=== PATIENT | female | born 1945 | race African-American/Black ===

== ENCOUNTER 2016-07-30 08:24 | Emergency (ER) | payer MEDICARE, MEDICAID ==
--- NOTE | 2016-07-30 09:22 | ER Document Report ---
ED Extremity Problem, Lower - General Chief Complaint: Leg Pain Stated Complaint: LEG AND GROIN PAIN Time seen by provider: 09:17 Mode of Arrival: Ambulatory Information source: Patient Notes: 70-year-old female presents to ED for left lower posterior leg pain. She has a history of colon cancer multiple other comorbidities. TRAVEL OUTSIDE OF THE [place] IN LAST 30 DAYS: No - HPI Patient complains to provider of: Pain Location: Leg - Bilateral right worse than left Occurred: Yesterday Where: Home Onset/Duration: Intermittent Quality of pain: Sharp, Throbbing Severity: Moderate Pain Level: 3 Recent injury: No Associated symptoms: Painful ambulation Exacerbated by: Nothing Relieved by: Nothing - Related Data Allergies/Adverse Reactions: diltiazem HCl [From Cardizem] Allergy (Severe, Verified 07/30/16 08:32) ITCHING, SWELLING, DIFFICULTY BREATHING acetaminophen [From Darvocet-N 100] Allergy (Intermediate, Verified 07/30/16 08: 32) Tachycardia propoxyphene napsylate [From Darvocet-N 100] Allergy (Intermediate, Verified 08:32) Tachycardia hydroxyzine HCl [From Vistaril] Allergy (Unknown, Verified 07/30/16 08:32) hydroxyzine pamoate [From Vistaril] Allergy (Unknown, Verified 07/30/16 08:32) levofloxacin [From Levaquin] Allergy (Unknown, Verified 07/30/16 08:32) oxycodone [Oxycodone] Allergy (Unknown, Verified 07/30/16 08:32) fluticasone propionate [From Advair Diskus] Adverse Reaction (Severe, Verified 07/30/16 08:32) AGRESSION salmeterol xinafoate [From Advair Diskus] Adverse Reaction (Severe, Verified 08:32) AGRESSION propoxyphene HCl [From Darvon] Adverse Reaction (Intermediate, Verified 08:32) Tachycardia celecoxib [From Celebrex] Adverse Reaction (Unknown, Verified 07/30/16 08:32) SHAKING meperidine HCl [From Demerol] Adverse Reaction (Unknown, Verified 07/30/16 08:32 ) oxycodone HCl [From Percocet] Adverse Reaction (Unknown, Verified 07/30/16 08:32 ) prednisone [Prednisone] Adverse Reaction (Unknown, Verified 07/30/16 08:32) CHILLS trazodone HCl [From Desyrel] Adverse Reaction (Unknown, Verified 07/30/16 08:32) amoxicillin [Amoxicillin] Adverse Reaction (Verified 07/30/16 08:32) STOMACH aspirin [Aspirin] Adverse Reaction (Verified 07/30/16 08:32) ULCER dexamethasone [From Decadron] Adverse Reaction (Verified 07/30/16 08:32) WEAKNESS dexamethasone sod phosphate [From Decadron] Adverse Reaction (Verified 07/30/16 08:32) WEAKNESS erythromycin base [From E-Mycin] Adverse Reaction (Verified 07/30/16 08:32) "STROKE LIKE SYMPTOMS pregabalin [From Lyrica] Adverse Reaction (Verified 07/30/16 08:32) "EFFECTS KIDNEYS" Past Medical History - General Information source: Patient - Social History Smoking Status: Never Smoker Cigarette use (# per day): No Chew tobacco use (# tins/day): No Smoking Education Provided: No Frequency of alcohol use: None Drug Abuse: None Occupation: none Lives with: Family - Grandson Family History: Arthritis, CAD, CVA, DM, Hyperlipidemia, Hypertension, Malignancy, Thyroid Disfunction Patient has suicidal ideation: No Patient has homicidal ideation: No - Past Medical History Cardiac Medical History: Reports: Hx Hypertension Pulmonary Medical History: Reports: Hx Asthma, Hx Bronchitis, Hx COPD EENT Medical History: Reports: None Neurological Medical History: Reports: None Endocrine Medical History: Reports: None Renal/ Medical History: Reports: None Malignancy Medical History: Reports: Hx Colorectal Cancer GI Medical History: Reports: Hx Diverticulitis, Hx Hiatal Hernia, Hx Ulcer, Hx Colonoscopy, Hx Endoscopy Musculoskeltal Medical History: Reports Hx Arthritis, 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, Reports Hx Musculoskeletal Trauma Skin Medical History: Reports None Psychiatric Medical History: Reports: None Traumatic Medical History: Reports: Hx Fractures - Spinal fractures clavicle fracture, Hx Spine Fracture - Multiple cervical fractures with surgery to repair , Hx Traumatic Brain Injury Infectious Medical History: Denies: Hx Hepatitis Past Surgical History: Reports: Hx Abdominal Surgery - Part of stomach removed due to ulcers, Hx Bowel Surgery, Hx Hysterectomy, Hx Neurologic Surgery - Multiple cervical spine fractures repaired, Hx Orthopedic Surgery - Lumbar spine surgery, Hx Tonsillectomy, Hx Umbilical Hernia, Other - Hemorrhoidectomy - Immunizations Hx Diphtheria, Pertussis, Tetanus Vaccination: No Review of Systems - Review of Systems Constitutional: No symptoms reported EENT: No symptoms reported Cardiovascular: No symptoms reported Respiratory: No symptoms reported Gastrointestinal: No symptoms reported Genitourinary: No symptoms reported Female Genitourinary: No symptoms reported Musculoskeletal: No symptoms reported, Other - Bilateral leg pain worse on the right Skin: No symptoms reported Hematologic/Lymphatic: No symptoms reported Neurological/Psychological: No symptoms reported -: Yes All other systems reviewed and negative Physical Exam - Vital signs Vitals: Temp Pulse Resp BP Pulse Ox 98.4 F 88 18 109/73 96 07/30/16 08:28 07/30/16 08:28 07/30/16 08:28 07/30/16 08:28 07/30/16 08:28 Interpretation: Normal - General General appearance: Appears well, Alert - HEENT Head: Normocephalic, Atraumatic Eyes: Normal Pupils: PERRL - Respiratory Respiratory status: No respiratory distress Chest status: Nontender Breath sounds: Normal Chest palpation: Normal - Cardiovascular Rhythm: Regular Heart sounds: Normal auscultation Murmur: No - Abdominal Inspection: Normal Distension: No distension Bowel sounds: Normal Tenderness: Nontender Organomegaly: No organomegaly - Back Back: Normal, Nontender - Extremities General upper extremity: Normal inspection, Nontender, Normal color, Normal ROM , Normal temperature General lower extremity: Normal inspection, Nontender, Normal color, Normal ROM , Normal temperature, Normal weight bearing. No: Tri's sign Calf: Tender - Neurological Neuro grossly intact: Yes Cognition: Normal Orientation: AAOx4 [place] Coma Scale Eye Opening: Spontaneous [place] Coma Scale Verbal: Oriented [place] Coma Scale Motor: Obeys Commands Sae[place] Coma Scale Total: 15 Speech: Normal Motor strength normal: LUE, RUE, LLE, RLE Sensory: Normal - Psychological Associated symptoms: Normal affect, Normal mood - Skin Skin Temperature: Warm Skin Moisture: Dry Skin Color: Normal Course - Re-evaluation Re-evalutation: 07/30/16 15:16 Negative penis Doppler discussed with patient and labs negative. Patient discharged home to follow-up with her primary doctor. - Vital Signs Vital signs: Temp Pulse Resp BP Pulse Ox 98.7 F 73 18 113/67 99 07/30/16 12:36 07/30/16 12:36 07/30/16 08:28 07/30/16 12:36 07/30/16 12:36 - Laboratory Result Diagrams: 07/30/16 09:52 Discharge - Discharge Clinical Impression: Leg pain, right Condition: Stable Disposition: HOME, SELF-CARE Additional Instructions: Leg Pain, Nonspecific We did not find an obvious cause for your leg pain. There's no sign of blood clot, infection, or other serious disease. Possible causes of vague leg pain include muscle or joint inflammation, disc disease in the lower back, pressure on the nerves in the back, or reduced blood flow through the arteries of the leg. Rest the leg. Pain can be eased with an antiinflammatory pain medicine such as ibuprofen. If the pain involves a small area, a heating pad might help. Call the doctor or return if the leg becomes swollen, weak, discolored, or increasingly painful, or if you develop any other significant change in your health. Acetaminophen Acetaminophen may be taken for pain relief or fever control. It's much safer than aspirin, offering a wider range of "safe" dosages. It is safe during . Some brand names are Tylenol, Panadol, Datril, Anacin 3, Tempra, and Liquiprin. Acetaminophen can be repeated every four hours. The following are maximum recommended dosages: WEIGHT Dose Drops Elixir Chewable( 80mg) (LBS.) drprs=droppers tsp=teaspoon 6 40 mg .4 ml (1/2) 6-11 80 mg .8 ml (full) 1/2 tsp 1 tab 12-16 120 mg 1 1/2 drprs 3/4 tsp 1 1/2 tabs 17-23 160 mg 2 drprs 1 tsp 2 tabs 24-30 240 mg 3 drprs 1 1/2 tsp 3 tabs 30-35 320 mg 2 tsp 4 tabs 36-41 360 mg 2 1/4 tsp 4 1 /2 tabs 42-47 400 mg 2 1/2 tsp 5 tabs 48-53 480 mg 3 tsp 6 tabs 54-59 520 mg 3 1/4 tsp 6 1 /2 tabs 60-64 560 mg 3 1/2 tsp 7 tabs 65-70 600 mg 3 3/4 tsp 7 1 /2 tabs 71-76 640 mg 4 tsp 8 tabs 77-82 720 mg 4 1/2 tsp 9 tabs 83-88 800 mg 5 tsp 10 tabs >89 pounds or adults 650 mg to 900 mg Acetaminophen can be repeated every four hours. Maximum daily dose not to exceed 4000 mg. These maximum recommended dosages are slightly higher than the dosages written on the product container, but these dosages are very safe and well below the toxic dosage for acetaminophen. FOLLOW-UP CARE: If you have been referred to a physician for follow-up care, call the physician s office for an appointment as you were instructed or within the next two days. If you experience worsening or a significant change in your symptoms, notify the physician immediately or return to the Emergency Department at any time for re-evaluation. Referrals: MATHIEU FERRARA MD [Primary Care Provider] - Follow up as needed
[2016-07-30 10:32] LABS: ALANINE AMINOTRANSFERASE 33 U/L (9-52); ALBUMIN 4.1 g/dL (3.5-5.0); ALKALINE PHOSPHATASE 89 U/L (38-126); ANION GAP 11 (5-19); ASPARTATE AMINO TRANSFERASE 31 U/L (14-36); BILIRUBIN,TOTAL 0.5 mg/dL (0.2-1.3); BLOOD UREA NITROGEN 14 mg/dL (7-20); CALCIUM 9.5 mg/dL (8.4-10.2); CARBON DIOXIDE 26 mmol/L (22-30); CHLORIDE 107 mmol/L (98-107); CREATININE RESULT 0.71 mg/dL (0.52-1.25); GLUCOSE 93 mg/dL (75-110); SODIUM 143.8 mmol/L (137-145); TOTAL PROTEIN 6.7 g/dL (6.3-8.2)
[2016-07-30 12:59] VITALS: BP 113/67
--- NOTE | 2016-07-31 08:35 | XCELERA REPORT ---
[address] [address] Lower Extremity Venous Evaluation Name: MERCEDES MIRELES Age: 70 yrs Gender: Female : 1945 Patient Status: Emergency Patient Location: ER Study Date: 07/30/2016 10:56 AM Procedure: Color flow and duplex imaging of the veins of the right lower extremity as well as the left Common Femoral vein. Reason For Study: pain right posterior lower leg hx colon ca Ordering Physician: ADDIE CARLSON Performed By: Nelson Tobias Right Sided Venous Evaluation Normal vessel filling wall to wall, compression and augmentation as well as Colour flow down to the infrageniculate veins. Left Sided Venous Evaluation The left common femoral vein is fully compressible. Spontaneous and phasic flow is present in the left common femoral vein. Critical Findings Called in to Dr Valenzuela at 1320. Interpretation Summary No duplex evidence of DVT or obstruction in the right lower extremity nor in the left Common Femoral vein. : ADDIE CARLSON > Dudley Bonilla
== END 2016-07-30 12:36 | disposition home or self-care (01) ==
LOC: ER 08:24
DX: M79.604 Pain in right leg (principal); Z85.038 Personal history of other malignant neoplasm of large intestine
CPT/HCPCS: 36415; 80053; 83735; 93971; 99284

== ENCOUNTER 2016-08-22 13:44 | Emergency (ER) | payer MEDICARE, MEDICAID ==
[2016-08-22] MEDS ORDERED: ASPIRIN 325 MG TABLET PO ONE (14:03)
--- NOTE | 2016-08-22 14:03 | ER Document Report ---
ED Medical Screen (RME) - General Chief Complaint: Allergic Reaction Stated Complaint: POSSIBLE ALLERGIC REACTION Time Seen by Provider: 08/22/16 13:58 Notes: 70-year-old female that presents today feeling as if she had an "allergic reaction". Patient states she had a right hip injection 4 days ago at the radiologist's office for some chronic hip and back pain. Patient states she had some "itching" after the injection. Patient states today she started to feel some "chest heaviness" with radiation to her left arm. She has never had pain to her chest previously. She denies any shortness of breath. She states some nausea without vomiting. She denies any calf pain or leg swelling. Patient also states that her "lips feel funny". She denies any tongue swelling or difficulty breathing or swallowing. Patient denies any other new medications or allergic contacts. TRAVEL OUTSIDE OF THE [place] IN LAST 30 DAYS: No - Related Data Allergies/Adverse Reactions: diltiazem HCl [From Cardizem] Allergy (Severe, Verified 08/22/16 13:52) ITCHING, SWELLING, DIFFICULTY BREATHING acetaminophen [From Darvocet-N 100] Allergy (Intermediate, Verified 08/22/16 13: 52) Tachycardia propoxyphene napsylate [From Darvocet-N 100] Allergy (Intermediate, Verified 13:52) Tachycardia hydroxyzine HCl [From Vistaril] Allergy (Unknown, Verified 08/22/16 13:52) hydroxyzine pamoate [From Vistaril] Allergy (Unknown, Verified 08/22/16 13:52) levofloxacin [From Levaquin] Allergy (Unknown, Verified 08/22/16 13:52) oxycodone [Oxycodone] Allergy (Unknown, Verified 08/22/16 13:52) fluticasone propionate [From Advair Diskus] Adverse Reaction (Severe, Verified 08/22/16 13:52) AGRESSION salmeterol xinafoate [From Advair Diskus] Adverse Reaction (Severe, Verified 13:52) AGRESSION propoxyphene HCl [From Darvon] Adverse Reaction (Intermediate, Verified 13:52) Tachycardia celecoxib [From Celebrex] Adverse Reaction (Unknown, Verified 08/22/16 13:52) SHAKING meperidine HCl [From Demerol] Adverse Reaction (Unknown, Verified 08/22/16 13:52 ) oxycodone HCl [From Percocet] Adverse Reaction (Unknown, Verified 08/22/16 13:52 ) prednisone [Prednisone] Adverse Reaction (Unknown, Verified 08/22/16 13:52) CHILLS trazodone HCl [From Desyrel] Adverse Reaction (Unknown, Verified 08/22/16 13:52) amoxicillin [Amoxicillin] Adverse Reaction (Verified 08/22/16 13:52) STOMACH aspirin [Aspirin] Adverse Reaction (Verified 08/22/16 13:52) ULCER dexamethasone [From Decadron] Adverse Reaction (Verified 08/22/16 13:52) WEAKNESS dexamethasone sod phosphate [From Decadron] Adverse Reaction (Verified 08/22/16 13:52) WEAKNESS erythromycin base [From E-Mycin] Adverse Reaction (Verified 08/22/16 13:52) "STROKE LIKE SYMPTOMS pregabalin [From Lyrica] Adverse Reaction (Verified 08/22/16 13:52) "EFFECTS KIDNEYS" Past Medical History - Past Medical History Cardiac Medical History: Reports: Hx Hypertension Denies: Hx Heart Attack Pulmonary Medical History: Reports: Hx Asthma, Hx Bronchitis, Hx COPD Neurological Medical History: Denies: Hx Seizures Renal/ Medical History: Denies: Hx Peritoneal Dialysis Malignancy Medical History: Reports: Hx Colorectal Cancer GI Medical History: Reports: Hx Diverticulitis, Hx Hiatal Hernia, Hx Ulcer, Hx Colonoscopy, Hx Endoscopy. 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 Denies: Hx Mastectomy, Hx Open Heart Surgery - Immunizations Hx Diphtheria, Pertussis, Tetanus Vaccination: No Physical Exam - Vital signs Vitals: Temp Pulse Resp BP Pulse Ox 98.5 F 83 16 142/84 H 96 08/22/16 13:48 08/22/16 13:48 08/22/16 13:48 08/22/16 13:48 08/22/16 13:48 Course - Vital Signs Vital signs: Temp Pulse Resp BP Pulse Ox 98.5 F 83 16 142/84 H 96 08/22/16 13:48 08/22/16 13:48 08/22/16 13:48 08/22/16 13:48 08/22/16 13:48
[2016-08-22 14:21] LABS: ABSOLUTE LYMPHOCYTES (AUTO) 1.7 10^3/uL (0.5-4.7); ABSOLUTE MONOCYTES (AUTO) 0.6 10^3/uL (0.1-1.4); ABSOLUTE NEUT (AUTO) 1.9 10^3/uL (1.7-8.2); BASOPHILS % (AUTO) 0.8 % (0-2); EOSINOPHILS % (AUTO) 0.1 % (0-6); HEMATOCRIT 40.1 % (36.0-47.0); HEMOGLOBIN 12.9 g/dL (12.0-15.5); HGB HCT DIFFERENCE -1.4; LYMPHOCYTES % (AUTO) 39.8 % (13-45); MEAN CORPUSCULAR HEMOGLOBIN 31.3 pg (27.0-33.4); MEAN CORPUSCULAR HGB CONC 32.2 g/dL (32.0-36.0); MEAN CORPUSCULAR VOLUME 97 fl (80-97); MONOCYTES % (AUTO) 13.2 % (3-13); RED BLOOD COUNT 4.12 10^6/uL (3.72-5.28); RED CELL DISTRIBUTION WIDTH 14.2 % (11.5-14.0); SEGMENTED NEUTROPHILS % (AUTO) 46.1 % (42-78); WHITE BLOOD COUNT 4.2 10^3/uL (4.0-10.5)
[2016-08-22 14:41] LABS: ANION GAP 7 (5-19); BLOOD UREA NITROGEN 15 mg/dL (7-20); CALCIUM 9.8 mg/dL (8.4-10.2); CARBON DIOXIDE 32 mmol/L (22-30); CHLORIDE 102 mmol/L (98-107); CREATININE RESULT 0.87 mg/dL (0.52-1.25); GLUCOSE 93 mg/dL (75-110); POTASSIUM 4.1 mmol/L (3.6-5.0); SODIUM 141.2 mmol/L (137-145)
[2016-08-22] MEDS ORDERED: FAMOTIDINE 20 MG TABLET PO ONE (16:26)
[2016-08-22] MEDS ORDERED: DIPHENHYDRAMINE HCL 25 MG CAPSULE PO ONE (16:26)
--- NOTE | 2016-08-22 16:29 | ER Document Report ---
ED General - General Mode of Arrival: Ambulatory Information source: Patient TRAVEL OUTSIDE OF THE [place] IN LAST 30 DAYS: No - HPI Patient complains to provider of: Weakness, soreness, pain to the left arm, and abnormal sensation to mouth Onset: This afternoon Associated symptoms: Other - see notes above <KVNG CASPER - Last Filed: 08/22/16 16:39> <FANG BAIRES - Last Filed: 08/22/16 22:28> - General Chief Complaint: Allergic Reaction Stated Complaint: POSSIBLE ALLERGIC REACTION Time Seen by Provider: 08/22/16 14:30 Notes: 70 year old female with history of back pain presents to the ED complaining of generalized weakness, soreness, and abnormal sensation to the mouth (roof and tongue) that started earlier this afternoon. Patient states that she received a depomedrol shot 4 days ago and believes these symptoms are related to a possible allergic reaction to the shot. Patient additionally complains of left arm pain, flu-like headache, and pruritus around the mouth. Patient states that she was numbed prior to the injection, but does not believe that these symptoms are from the numbing medication. Patient was receiving the shot for left hip/ groin pain. (KVNG CASPER) - Related Data Allergies/Adverse Reactions: diltiazem HCl [From Cardizem] Allergy (Severe, Verified 08/22/16 13:52) ITCHING, SWELLING, DIFFICULTY BREATHING acetaminophen [From Darvocet-N 100] Allergy (Intermediate, Verified 08/22/16 13: 52) Tachycardia propoxyphene napsylate [From Darvocet-N 100] Allergy (Intermediate, Verified 13:52) Tachycardia hydroxyzine HCl [From Vistaril] Allergy (Unknown, Verified 08/22/16 13:52) hydroxyzine pamoate [From Vistaril] Allergy (Unknown, Verified 08/22/16 13:52) levofloxacin [From Levaquin] Allergy (Unknown, Verified 08/22/16 13:52) oxycodone [Oxycodone] Allergy (Unknown, Verified 08/22/16 13:52) fluticasone propionate [From Advair Diskus] Adverse Reaction (Severe, Verified 08/22/16 13:52) AGRESSION salmeterol xinafoate [From Advair Diskus] Adverse Reaction (Severe, Verified 13:52) AGRESSION propoxyphene HCl [From Darvon] Adverse Reaction (Intermediate, Verified 13:52) Tachycardia celecoxib [From Celebrex] Adverse Reaction (Unknown, Verified 08/22/16 13:52) SHAKING meperidine HCl [From Demerol] Adverse Reaction (Unknown, Verified 08/22/16 13:52 ) oxycodone HCl [From Percocet] Adverse Reaction (Unknown, Verified 08/22/16 13:52 ) prednisone [Prednisone] Adverse Reaction (Unknown, Verified 08/22/16 13:52) CHILLS trazodone HCl [From Desyrel] Adverse Reaction (Unknown, Verified 08/22/16 13:52) amoxicillin [Amoxicillin] Adverse Reaction (Verified 08/22/16 13:52) STOMACH aspirin [Aspirin] Adverse Reaction (Verified 08/22/16 13:52) ULCER dexamethasone [From Decadron] Adverse Reaction (Verified 08/22/16 13:52) WEAKNESS dexamethasone sod phosphate [From Decadron] Adverse Reaction (Verified 08/22/16 13:52) WEAKNESS erythromycin base [From E-Mycin] Adverse Reaction (Verified 08/22/16 13:52) "STROKE LIKE SYMPTOMS pregabalin [From Lyrica] Adverse Reaction (Verified 08/22/16 13:52) "EFFECTS KIDNEYS" Past Medical History - General Information source: Patient - Social History Smoking Status: Unknown if Ever Smoked Family History: Arthritis, CAD, CVA, DM, Hyperlipidemia, Hypertension, Malignancy, Thyroid Disfunction - Past Medical History Cardiac Medical History: Reports: Hx Hypertension Pulmonary Medical History: Reports: Hx Asthma, Hx Bronchitis, Hx COPD Malignancy Medical History: Reports: Hx Colorectal Cancer GI Medical History: Reports: Hx Diverticulitis, Hx Hiatal Hernia, Hx Ulcer, Hx Colonoscopy, Hx Endoscopy Musculoskeltal Medical History: Reports Hx Arthritis, 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, Reports Hx Musculoskeletal Trauma Traumatic Medical History: Reports: Hx Fractures - Spinal fractures clavicle fracture, Hx Spine Fracture - Multiple cervical fractures with surgery to repair , Hx Traumatic Brain Injury Past Surgical History: Reports: Hx Abdominal Surgery - Part of stomach removed due to ulcers, Hx Bowel Surgery, Hx Hysterectomy, Hx Neurologic Surgery - Multiple cervical spine fractures repaired, Hx Orthopedic Surgery - Lumbar spine surgery, Hx Tonsillectomy, Hx Umbilical Hernia, Other - Hemorrhoidectomy - Immunizations Hx Diphtheria, Pertussis, Tetanus Vaccination: No <KVNG CASPER - Last Filed: 08/22/16 16:39> Review of Systems - Review of Systems Constitutional: See HPI, Weakness EENT: No symptoms reported Cardiovascular: No symptoms reported Respiratory: No symptoms reported Gastrointestinal: No symptoms reported Genitourinary: No symptoms reported Female Genitourinary: No symptoms reported Musculoskeletal: See HPI, Joint pain - Right hip/groin at injection site, Other - left arm pain Skin: No symptoms reported Hematologic/Lymphatic: No symptoms reported Neurological/Psychological: See HPI, Sensory change - Roof of mouth and tongue, Headaches - 'flu-like' headache -: Yes All other systems reviewed and negative <KVNG CASPER - Last Filed: 08/22/16 16:39> Physical Exam - Vital signs Interpretation: Normal - General General appearance: Appears well, Alert - HEENT Head: Normocephalic, Atraumatic Eyes: Normal Pupils: PERRL - Respiratory Respiratory status: No respiratory distress Chest status: Nontender Breath sounds: Normal Chest palpation: Normal - Cardiovascular Rhythm: Regular Heart sounds: Normal auscultation Murmur: No - Abdominal Inspection: Normal Distension: No distension Bowel sounds: Normal Tenderness: Nontender Organomegaly: No organomegaly - Back Back: Normal, Nontender - Extremities General upper extremity: Normal inspection, Nontender, Normal color, Normal ROM , Normal temperature General lower extremity: Normal inspection, Nontender, Normal color, Normal ROM , Normal temperature, Normal weight bearing. No: Tri's sign - Neurological Neuro grossly intact: Yes Cognition: Normal Orientation: AAOx4 [place] Coma Scale Eye Opening: Spontaneous [place] Coma Scale Verbal: Oriented [place] Coma Scale Motor: Obeys Commands [place] Coma Scale Total: 15 Speech: Normal Motor strength normal: LUE, RUE, LLE, RLE Sensory: Normal - Psychological Associated symptoms: Normal affect, Normal mood - Skin Skin Temperature: Warm Skin Moisture: Dry Skin Color: Normal <FANG BAIRES - Last Filed: 08/22/16 22:28> - Vital signs Vitals: Temp Pulse Resp BP Pulse Ox 98.5 F 83 16 142/84 H 96 08/22/16 13:48 08/22/16 13:48 08/22/16 13:48 08/22/16 13:48 08/22/16 13:48 Course - Laboratory Result Diagrams: 08/22/16 14:05 08/22/16 14:05 <KVNG CASPER - Last Filed: 08/22/16 16:39> - Laboratory Result Diagrams: 08/22/16 14:05 08/22/16 14:05 - Diagnostic Test Radiology reviewed: Reports reviewed <FANG BAIRES - Last Filed: 08/22/16 22:28> - Re-evaluation Re-evalutation: 08/22/16 22:28 Patient with no acute findings on exam. Area that was injected without any redness tenderness or swelling. No urticaria. Patient is complaining of some itching in her mouth. Patient has multiple allergies to multiple medications including steroids. Patient will be given Benadryl. Patient was feeling better after being given this and was discharged home. She is to return if she has any worsening or concerning symptoms. She is to avoid injections same medication the future. Stable for discharge. (FANG BAIRES) - Vital Signs Vital signs: Temp Pulse Resp BP Pulse Ox 98.5 F 83 16 142/84 H 96 08/22/16 13:48 08/22/16 13:48 08/22/16 13:48 08/22/16 13:48 08/22/16 13:48 - Laboratory Laboratory results interpreted by me: 08/22/16 08/22/16 14:05 14:05 RDW 14.2 H Monocytes % 13.2 H Carbon Dioxide 32 H Discharge <KVNG CASPER - Last Filed: 08/22/16 16:39> <FANG BAIRES - Last Filed: 08/22/16 22:28> - Discharge Clinical Impression: Allergic reaction Qualifiers: Encounter type: initial encounter Qualified Code(s): T78.40XA - Allergy, unspecified, initial encounter Condition: Stable Disposition: HOME, SELF-CARE Instructions: Acute Allergic Reaction to Drugs ([facility]) Referrals: MATHIEU FERRARA MD [Primary Care Provider] - Follow up as needed Scribe Documentation - Scribe Written by Scribe:: Daina Johnston, 08/22/2016 1910 acting as scribe for :: Jame <KVNG CASPER - Last Filed: 08/22/16 16:39>
--- NOTE | 2016-08-22 22:13 | EKG REPORT ---
SEVERITY:- NORMAL ECG - SINUS RHYTHM : Confirmed by: Judith Cunha MD 22-Aug-2016 22:12:41
[2016-08-23 01:26] VITALS: BP 134/70
== END 2016-08-22 18:08 | disposition home or self-care (01) ==
LOC: ER 13:44
DX: T78.40XA Allergy, unspecified, initial encounter (principal); R53.1 Weakness
CPT/HCPCS: 93005; 99284; 36415; 85025; 80048; 84484; 71020; 93010; A9270 ×3

== ENCOUNTER 2016-11-22 07:26 | Day surgery (SDC) | payer MEDICARE, MEDICAID ==
--- NOTE | 2016-11-16 12:49 | HISTORY AND PHYSICAL E ---
History and Physical NAME: MERCEDES MIRELES : 1945 AGE: 71Y ADMITTED: 11/22/2016 ROOM: CHIEF COMPLAINT: Patient for colon screening. HISTORY: Patient was seen back in 2013 for abdominal pain and underwent the following: Upper scope that showed no ulcers. She did have a partial gastrectomy, small gastric pouch, no ulcers. At this time, patient for colon screening. Patient did have colonoscopy done in 2007. She did have right hemicolectomy. She did have a normal-looking rectosigmoid, ascending, anastomosis is patent, small bowel intubated. Again, the patient did have history of colon cancer, right hemicolectomy. MEDICATIONS: 1. Singulair. 2. Synthroid. 3. Vitamin D. 4. Nebulizer. 5. Nexium. 6. Hydrocodone. ALLERGIES: She is allergic to: 1. AMOXICILLIN. 2. PREDNISONE. 3. DEMEROL. 4. ASPIRIN. REVIEW OF SYSTEMS: GASTROINTESTINAL: Partial gastrectomy, gastritis, small anastomotic ulcers, right hemicolectomy, cholecystectomy, hysterectomy. PHYSICAL EXAMINATION: VITAL SIGNS: Blood pressure 120/60, pulse 80, respirations 18, temp is 98. HEAD, EYES, EARS, NOSE, THROAT: Normal. NECK: Supple. LUNGS: Clear. ABDOMEN: Soft. NEUROLOGIC: Exam negative. CONCLUSION: History of colon cancer. PLAN: Screening colonoscopy, scheduled for 11/22. DICTATING PHYSICIAN: JUAN DIEGO MUNROE M.D. [id number] [id number] PHY#: [id number] ID: [id number] JOB#: [id number] ACCT: [id number] cc:MATHIEU FERRARA M.D., MAHMOUD M.D. >
[2016-11-22] MEDS ORDERED: ONDANSETRON HCL INJ/PF 4 MG/2 ML SDV ONE (09:18)
[2016-11-22] MEDS ORDERED: LIDOCAINE 2% JELLY 30 ML TUBE ONE (09:18)
[2016-11-22] MEDS ORDERED: NALOXONE HCL INJ/PF 0.4 MG/1 ML SDV ONE (09:19)
[2016-11-22] MEDS ORDERED: GLYCOPYRROLATE INJ 0.4 MG/2 ML VIAL ONE (09:19)
[2016-11-22] MEDS ORDERED: FLUMAZENIL INJ 0.5 MG/5 ML VIAL IV ONE (09:20)
[2016-11-22] MEDS ORDERED: EPINEPHRINE INJ 1 MG/10 ML DISP.SYRIN ONE (09:20)
[2016-11-22] MEDS ORDERED: GLUCAGON,HUMAN RECOMB 1 MG INJ ONE (09:20)
[2016-11-22] MEDS: MIDAZOLAM 2 MG/2 ML INJ ONE ×2 (09:35→09:40)
[2016-11-22] MEDS: FENTANYL CITRATE INJ/PF 100 MCG/2 ML AMPUL ONE ×2 (09:37→09:46)
[2016-11-22 11:43] VITALS: BP 123/82
[2016-11-22 12:11] LABS: ABSOLUTE LYMPHOCYTES (AUTO) 1.1 10^3/uL (0.5-4.7); ABSOLUTE MONOCYTES (AUTO) 0.3 10^3/uL (0.1-1.4); ABSOLUTE NEUT (AUTO) 2.5 10^3/uL (1.7-8.2); BASOPHILS % (AUTO) 0.6 % (0-2); EOSINOPHILS % (AUTO) 0.3 % (0-6); HEMATOCRIT 35.6 % (36.0-47.0); HEMOGLOBIN 11.8 g/dL (12.0-15.5); HGB HCT DIFFERENCE -0.2; LYMPHOCYTES % (AUTO) 27.5 % (13-45); MEAN CORPUSCULAR HEMOGLOBIN 32.2 pg (27.0-33.4); MEAN CORPUSCULAR HGB CONC 33.1 g/dL (32.0-36.0); MEAN CORPUSCULAR VOLUME 97 fl (80-97); MONOCYTES % (AUTO) 7.6 % (3-13); RED BLOOD COUNT 3.66 10^6/uL (3.72-5.28); RED CELL DISTRIBUTION WIDTH 14.2 % (11.5-14.0); WHITE BLOOD COUNT 3.9 10^3/uL (4.0-10.5)
[2016-11-22 12:28] LABS: IRON 160.5 ug/dL (37-170)
[2016-11-22 13:03] LABS: FERRITIN 11.2 ng/mL (11.1-264.0)
--- NOTE | 2016-11-22 13:44 | DISCHARGE SUMMARY E ---
Discharge Summary NAME: MERCEDES MIRELES : 1945 AGE: 71Y ADMITTED: 11/22/2016 DISCHARGED: 11/22/2016 11/22/2016 SUMMARY: The patient is a 71-year-old female who underwent colon exam today because of history of colorectal polyps. She did have right colon resection more than 10 years ago. Today colonoscopy shows no evidence of polyps. She did have a right hemicolectomy, no recurrence. The patient did have partial gastrectomy, small gastric pouch, no ulcers. Colonoscopy today shows no polyps, no recurrence. DISCHARGE PLAN: 1. Assurance. 2. Soft diet. 3. Continue present management. 4. Follow-up office visit in the next few days. 5. Consider follow-up colonoscopy after 10 years. DICTATING PHYSICIAN: JUAN DIEGO MUNROE M.D. 1209M [id number] PHY#: [id number] ID: [id number] JOB#: [id number] ACCT: [id number] cc:MATHIEU FERRARA M.D., MAHMOUD M.D. >
--- NOTE | 2016-11-22 13:53 | OPERATIVE REPORT E ---
Operative Report NAME: MERCEDES MIRELES : 1945 AGE: 71Y DATE OF SURGERY: 11/22/2016 ROOM: PREOPERATIVE DIAGNOSIS: HISTORY OF COLON CANCER; RIGHT COLON RESECTION. POSTOPERATIVE DIAGNOSIS: COLONOSCOPY NORMAL TO ANASTOMOSIS; NO RECURRENCE. OPERATION: Colonoscopy. SURGEON: JUAN DIEGO MUNROE M.D. ANESTHESIA: Versed 2. Fentanyl 50. TISSUE REMOVED OR ALTERED: None. PROCEDURE/FINDINGS: RECTAL EXAM: Normal. SIGMOID DESCENDING COLON: Normal. TRANSVERSE COLON: Normal. ASCENDING COLON: Resected. Anastomosis patent. No evidence of recurrence. Scope withdrawn from anastomosis into to transverse colon. Sigmoid descending colon, all the way to the rectum. CONCLUSION: HISTORY OF COLON CANCER, RESECTED MORE THAN 10 YEARS AGO; NO EVIDENCE OF RECURRENCE. PLAN: Consider followup colonoscopy 10 years. DICTATING PHYSICIAN: JUAN DIEGO MURNOE M.D. [id number] [id number] PHY#: [id number] ID: [id number] JOB#: [id number] ACCT: [id number] cc:MATHIEU FERRARA M.D., MAHMOUD M.D. >
== END 2016-11-22 11:50 | disposition home or self-care (01) ==
LOC: END 07:26
PROVIDERS: ATTEND Specialist
PROC: 0DJD8ZZ Inspection of Lower Intestinal Tract, Via Natural or Artificial Opening Endoscopic (ICD-10-PCS; principal; 2016-11-22 09:00)
DX: Z12.11 Encounter for screening for malignant neoplasm of colon (principal); Z85.038 Personal history of other malignant neoplasm of large intestine; Z90.49 Acquired absence of other specified parts of digestive tract; R97.0 Elevated carcinoembryonic antigen [CEA]; Z79.899 Other long term (current) drug therapy; Z88.6 Allergy status to analgesic agent; Z88.5 Allergy status to narcotic agent; Z88.0 Allergy status to penicillin
CPT/HCPCS: 36415; 82378; 82728; 83540; 85025; G0121; J2250; J3010; J1610; J2405; J0171; J2310; J3490

== ENCOUNTER 2017-01-10 07:55 | Day surgery (SDC) | payer MEDICARE, MEDICAID ==
--- NOTE | 2017-01-03 13:48 | HISTORY AND PHYSICAL E ---
History and Physical NAME: MERCEDES MIRELES : 1945 AGE: 71Y ADMITTED: 01/10/2017 ROOM: CHIEF COMPLAINT: History of . HISTORY: The patient is a 71-year-old female. She had a recent colonoscopy. She did have resection for colon, right hemicolectomy, secondary to polyps, no recurrence. She did have a partial gastrectomy, small gastric pouch. Today, she presented regarding upper endoscopy. MEDICATIONS: 1. Synthroid. 2. Singulair. 3. Nebulizer. 4. Nexium. 5. Hydrocodone. ALLERGIES: 1. PREDNISONE. 2. DEMEROL. 3. ASPIRIN. REVIEW OF SYSTEMS: GASTROINTESTINAL: Partial gastrectomy, right hemicolectomy, cholecystectomy, hysterectomy. PHYSICAL EXAMINATION: VITAL SIGNS: Blood pressure 120/60, pulse 80, respirations 18, temp is 98. HEAD, EYES, EARS, NOSE, THROAT: Normal. NECK: Supple. LUNGS: Clear. ABDOMEN: Soft. NEUROLOGIC: Exam negative. CONCLUSION: 1. Upper scope. 2. History of partial gastrectomy. 3. History of anemia. PLAN: Upper scope. Admit on 01/10. DICTATING PHYSICIAN: JUAN DIEGO MUNROE M.D. [id number] [id number] PHY#: [id number] ID: [id number] JOB#: [id number] ACCT: [id number] cc:JUAN DIEGO MUNROE M.D. >
[~2017-01-10 07:55] MED LIST: EPINEPHRINE INJ 1 MG/10 ML DISP.SYRIN ONE; FLUMAZENIL INJ 0.5 MG/5 ML VIAL ONE; GLUCAGON,HUMAN RECOMB 1 MG INJ ONE; GLYCOPYRROLATE INJ 0.4 MG/2 ML VIAL ONE; LIDOCAINE 2% JELLY 30 ML TUBE ONE; NALOXONE HCL INJ/PF 0.4 MG/1 ML SDV ONE; ONDANSETRON HCL INJ/PF 4 MG/2 ML SDV ONE
[2017-01-10] MEDS: MIDAZOLAM 2 MG/2 ML INJ ONE ×2 (09:10→09:14)
[2017-01-10] MEDS: FENTANYL CITRATE INJ/PF 100 MCG/2 ML AMPUL ONE ×2 (09:12→09:15)
[2017-01-10 10:44] LABS: ABSOLUTE LYMPHOCYTES (AUTO) 1.4 10^3/uL (0.5-4.7); ABSOLUTE MONOCYTES (AUTO) 0.3 10^3/uL (0.1-1.4); ABSOLUTE NEUT (AUTO) 1.5 10^3/uL (1.7-8.2); BASOPHILS % (AUTO) 0.8 % (0-2); EOSINOPHILS % (AUTO) 0.5 % (0-6); HEMATOCRIT 36.4 % (36.0-47.0); HEMOGLOBIN 12.1 g/dL (12.0-15.5); HGB HCT DIFFERENCE -0.1; LYMPHOCYTES % (AUTO) 42.3 % (13-45); MEAN CORPUSCULAR HEMOGLOBIN 31.9 pg (27.0-33.4); MEAN CORPUSCULAR HGB CONC 33.2 g/dL (32.0-36.0); MEAN CORPUSCULAR VOLUME 96 fl (80-97); MONOCYTES % (AUTO) 9.4 % (3-13); RED BLOOD COUNT 3.79 10^6/uL (3.72-5.28); RED CELL DISTRIBUTION WIDTH 14.7 % (11.5-14.0); WHITE BLOOD COUNT 3.2 10^3/uL (4.0-10.5)
[2017-01-10 11:05] LABS: IRON 34.2 ug/dL (37-170)
[2017-01-10 11:17] VITALS: BP 122/62
[2017-01-10 11:40] LABS: FERRITIN 6.88 ng/mL (11.1-264.0)
--- NOTE | 2017-01-10 12:04 | OPERATIVE REPORT E ---
Operative Report NAME: MERCEDES MIRELES : 1945 AGE: 71Y DATE OF SURGERY: 01/10/2017 ROOM: PREOPERATIVE DIAGNOSIS: 1. HISTORY OF GASTRIC SURGERY FOR PEPTIC ULCER. 2. PARTIAL GASTRECTOMY. 3. HISTORY OF ANEMIA. POSTOPERATIVE DIAGNOSIS: 1. SMALL HIATUS HERNIA. 2. MILD ESOPHAGITIS. 3. BENIGN-LOOKING THICK POLYP, 2 MM. 4. BENIGN-LOOKING, 2-MM, HYPERPLASTIC-LOOKING POLYP, NOT BLEEDING. 5. GASTROENTEROSTOMY PATENT WITH NO EVIDENCE OF A STRICTURE, NO MARGINAL ULCERS. SURGEON: JUAN DIEGO MUNROE M.D. ANESTHESIA: Versed 3, fentanyl 75. PROCEDURE: After adequate sedation, baby scope passed under guided vision. No difficulties. Esophagoscopy: Junction 35 cm, small hiatus hernia, mild esophagitis. Gastroscopy: Small gastric pouch with no ulcers; a small, 2-mm, benign-looking gastric polyp with no bleeding. Duodenoscopy: The duodenum patent anastomoses, normal-looking mucosa with no ulcers, no bleeding. CONCLUSION: Gastroenterostomy, small gastric polyp, small hiatus hernia. PLAN: Assurance. Baseline CBC and serum iron and ferritin and B12 and vitamin D level. Patient to see us in the office in the next few days. DICTATING PHYSICIAN: JUAN DIEGO MUNROE M.D. [id number] [id number] Y#: [id number] ID: [id number] JOB#: [id number] ACCT: [id number] cc:JUAN DIEGO MUNROE M.D. >
--- NOTE | 2017-01-10 12:06 | DISCHARGE SUMMARY E ---
Discharge Summary NAME: MERCEDES MIRELES : 1945 AGE: 71Y ADMITTED: 01/10/2017 DISCHARGED: 01/10/2017 HISTORY OF PRESENT ILLNESS: A 71-year-old female has history of partial gastrectomy, presented with reflux symptoms. She did have history of colon cancer. Right colon resection, recent colonoscopy, no recurrence. Today's upper scope shows no malignancy, no bleeding. Gastroenterostomy: Patent anastomoses; small, benign-looking polyp, 2 mm; mild esophagitis; small gastric pouch. DISCHARGE PLAN: Baseline studies. Continue present management. Patient to see us in the office in the next few days. Continue soft diet. Awaiting lab results. Followup office visit in the next few days. DICTATING PHYSICIAN: JUAN DIEGO MUNROE M.D. [id number] 1010 [facility]#: [id number] ID: [id number] JOB#: [id number] ACCT: [id number] cc:JUAN DIEGO MUNROE M.D. >
== END 2017-01-10 10:45 | disposition home or self-care (01) ==
LOC: END 07:55
PROVIDERS: ATTEND Specialist
PROC: 0DJ08ZZ Inspection of Upper Intestinal Tract, Via Natural or Artificial Opening Endoscopic (ICD-10-PCS; principal; 2017-01-10 09:00)
DX: K44.9 Diaphragmatic hernia without obstruction or gangrene (principal); K20.9 Esophagitis, unspecified; K31.7 Polyp of stomach and duodenum; Z90.3 Acquired absence of stomach [part of]; Z79.899 Other long term (current) drug therapy; Z88.5 Allergy status to narcotic agent; Z88.6 Allergy status to analgesic agent; Z87.11 Personal history of peptic ulcer disease
CPT/HCPCS: 43235; 36415; 82306; 82607; 82728; 83540; 85025; J2250; J3010; J2405; J0171; J1610; J2310; J3490

== ENCOUNTER → 2017-03-13 | Outpatient (CLI) | payer MEDICARE, MEDICAID | LOC: OD 08:10 | PROVIDERS: ATTEND Specialist | DX: D50.9 Iron deficiency anemia, unspecified (principal) | CPT/HCPCS: 36415; 83540 ==

== ENCOUNTER 2017-09-26 20:10 | Emergency (ER) | payer MEDICARE, OTHER, MEDICAID ==
[2017-09-26] MEDS ORDERED: ONDANSETRON 4 MG TAB.RAPDIS PO ONE (20:33)
--- NOTE | 2017-09-26 21:30 | ER Document Report ---
ED GI/ - General Chief Complaint: Nausea Stated Complaint: POST SURGICAL PAIN Time Seen by Provider: 09/26/17 21:21 Notes: Patient is a 71-year-old female comes emergency department for chief complaint of nausea. She states that she is 2 days postop cervical spinal fusion at [facility] by Dr. Ramirez, states that she was discharged today and attempted to take her Percocet prescription, she states that just shortly after she took the medicine she started having cramping in her abdomen and nausea. She states that her nausea is a lot better already and she is not currently in pain. She denies fever, vomiting, she states she had a bowel movement yesterday which was normal. Past medical history of COPD, hypothyroidism, GERD , peptic ulcers. Patient has a large amount of medication allergies. Patient is here with her daughter. TRAVEL OUTSIDE OF THE [place] IN LAST 30 DAYS: No - Related Data Allergies/Adverse Reactions: propoxyphene napsylate [From Darvocet-N 100] Allergy (Intermediate, Verified 06/23 15:16) Tachycardia hydroxyzine HCl [From Vistaril] Allergy (Unknown, Verified 01/09/17 15:16) hydroxyzine pamoate [From Vistaril] Allergy (Unknown, Verified 01/09/17 15:16) levofloxacin [From Levaquin] Allergy (Unknown, Verified 01/09/17 15:16) oxycodone [Oxycodone] Allergy (Unknown, Verified 01/09/17 15:16) fluticasone propionate [From Advair Diskus] Adverse Reaction (Severe, Verified 01/09/17 15:16) AGRESSION salmeterol xinafoate [From Advair Diskus] Adverse Reaction (Severe, Verified 06/23 15:16) AGRESSION propoxyphene HCl [From Darvon] Adverse Reaction (Intermediate, Verified 15:16) Tachycardia celecoxib [From Celebrex] Adverse Reaction (Unknown, Verified 01/09/17 15:16) SHAKING meperidine HCl [From Demerol] Adverse Reaction (Unknown, Verified 01/09/17 15:16 ) Abnormal behavior oxycodone HCl [From Percocet] Adverse Reaction (Unknown, Verified 01/09/17 15:16 ) Tachycardia prednisone [Prednisone] Adverse Reaction (Unknown, Verified 01/09/17 15:16) CHILLS trazodone HCl [From Desyrel] Adverse Reaction (Unknown, Verified 01/09/17 15:16) amoxicillin [Amoxicillin] Adverse Reaction (Verified 01/09/17 15:16) STOMACH aspirin [Aspirin] Adverse Reaction (Verified 01/09/17 15:16) ULCER dexamethasone [From Decadron] Adverse Reaction (Verified 01/09/17 15:16) WEAKNESS dexamethasone sod phosphate [From Decadron] Adverse Reaction (Verified 01/09/17 15:16) WEAKNESS erythromycin base [From E-Mycin] Adverse Reaction (Verified 01/09/17 15:16) "STROKE LIKE SYMPTOMS pregabalin [From Lyrica] Adverse Reaction (Verified 01/09/17 15:16) "EFFECTS KIDNEYS" Past Medical History - General Information source: Patient, Relative - Daughter - Social History Smoking Status: Never Smoker Frequency of alcohol use: None Drug Abuse: None Lives with: Family Family History: Arthritis, CAD, CVA, DM, Hyperlipidemia, Hypertension, Malignancy, Thyroid Disfunction - Past Medical History Cardiac Medical History: Denies: Hx Coronary Artery Disease, Hx Heart Attack, Hx Hypertension Pulmonary Medical History: Reports: Hx Asthma - MILD Denies: Hx Bronchitis, Hx COPD, Hx Pneumonia Neurological Medical History: Denies: Hx Cerebrovascular Accident, Hx Seizures Renal/ Medical History: Denies: Hx Peritoneal Dialysis Malignancy Medical History: Reports: Hx Colorectal Cancer GI Medical History: Reports: Hx Diverticulitis, Hx Hiatal Hernia, Hx Ulcer, Hx Colonoscopy, Hx Endoscopy. 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 Denies: Hx Hysterectomy, Hx Mastectomy, Hx Open Heart Surgery - Immunizations Hx Diphtheria, Pertussis, Tetanus Vaccination: No Review of Systems - Review of Systems Constitutional: No symptoms reported EENT: No symptoms reported Cardiovascular: No symptoms reported Respiratory: No symptoms reported Gastrointestinal: See HPI Genitourinary: No symptoms reported Female Genitourinary: No symptoms reported Musculoskeletal: See HPI Skin: No symptoms reported Hematologic/Lymphatic: No symptoms reported Neurological/Psychological: No symptoms reported Physical Exam - Vital signs Vitals: Temp Pulse Resp BP Pulse Ox 99.6 F 84 20 106/59 L 98 09/26/17 20:29 09/26/17 20:29 09/26/17 20:29 09/26/17 20:29 09/26/17 20:29 - Notes Notes: GENERAL: Alert, interacts well. No acute distress. HEAD: Normocephalic, atraumatic. EYES: Pupils equal, round, and reactive to light. Extraocular movements intact. ENT: Oral mucosa moist, tongue midline. NECK: Patient wearing a cervical collar. No overt abnormalities noted with limited exam. LUNGS: Clear to auscultation bilaterally, no wheezes, rales, or rhonchi. No respiratory distress. HEART: Regular rate and rhythm. No murmur ABDOMEN: Soft, non-tender. Non-distended. Bowel sounds present in all 4 quadrants. EXTREMITIES: Moves all 4 extremities spontaneously. No edema, normal radial and dorsalis pedis pulses bilaterally. No cyanosis. BACK: no cervical, thoracic, lumbar midline tenderness. No saddle anesthesia, normal distal neurovascular exam. NEUROLOGICAL: Alert and oriented x3. Normal speech. [cranial nerves II through XII grossly intact]. PSYCH: Normal affect, normal mood. SKIN: Warm, dry, normal turgor. No rashes or lesions noted. Course - Re-evaluation Re-evalutation: Patient given Zofran, afterwards she was asymptomatic. Soft unremarkable abdomen. Smiling and well-appearing patient. Vital signs unremarkable. No fever. Patient initially came to workup, CBC were performed and shows mild anemia, no leukocytosis. Chemistry unremarkable generally. Patient has not provided a urinalysis yet, has not had imaging yet. I reevaluated patient, she states she feels great and she wants to leave. Declines additional workup or contact of her surgeon but states that she will follow-up closely. She is going home with daughter. Because of patient's presentation, exam, workup, and reported symptoms I do suspect this was a medication side effect and I have a low suspicion of postoperative infection, acute abdomen, ischemic bowel. She will be discharged at this time with strict follow-up with her surgeon and strict return precautions. Patient states satisfaction and agreement with plan. Patient requested that I give her tramadol that she can take instead of Percocet , states she has had good results with this in the past and states she would prefer this. - Vital Signs Vital signs: Temp Pulse Resp BP Pulse Ox 98.9 F 88 18 115/69 99 09/26/17 22:49 09/26/17 22:49 09/26/17 22:49 09/26/17 22:49 09/26/17 22:49 - Laboratory Result Diagrams: 09/26/17 21:35 09/26/17 21:35 Laboratory results interpreted by me: 09/26/17 09/26/17 21:35 21:35 RBC 3.34 L Hgb 10.8 L Hct 32.3 L Seg Neutrophils % 82.7 H Lymphocytes % 8.2 L Absolute Neutrophils 8.4 H Glucose 135 H Discharge - Discharge Clinical Impression: Nausea, Medication side effects Condition: Stable Disposition: HOME, SELF-CARE Additional Instructions: Take the Zofran prescribed if needed for nausea while taking percocet, you can also take the tramadol instead of the Percocet if needed, do NOT take tramadol and Percocet at the same time. Call your surgeon for close follow-up. Return if for any concerning symptoms including pain in your abdomen, vomiting, fever, or any other concerning symptoms. Prescriptions: Ondansetron [Zofran Odt 4 mg Tablet] 1 - 2 tab PO Q4H PRN #15 tab.rapdis PRN Reason: For Nausea/Vomiting Tramadol HCl 50 mg PO ASDIR PRN #20 tablet PRN Reason: For Pain Referrals: JUAN DIEGO MUNROE MD [EMERITUS] - Follow up as needed
[2017-09-26 21:46] LABS: ABSOLUTE LYMPHOCYTES (AUTO) 0.8 10^3/uL (0.5-4.7); ABSOLUTE MONOCYTES (AUTO) 0.9 10^3/uL (0.1-1.4); ABSOLUTE NEUT (AUTO) 8.4 10^3/uL (1.7-8.2); BASOPHILS % (AUTO) 0.3 % (0-2); EOSINOPHILS % (AUTO) 0.2 % (0-6); HEMATOCRIT 32.3 % (36.0-47.0); HEMOGLOBIN 10.8 g/dL (12.0-15.5); LYMPHOCYTES % (AUTO) 8.2 % (13-45); MEAN CORPUSCULAR HEMOGLOBIN 32.2 pg (27.0-33.4); MEAN CORPUSCULAR HGB CONC 33.3 g/dL (32.0-36.0); MEAN CORPUSCULAR VOLUME 97 fl (80-97); MONOCYTES % (AUTO) 8.6 % (3-13); PLATELET COUNT 224 10^3/uL (150-450); RED BLOOD COUNT 3.34 10^6/uL (3.72-5.28); RED CELL DISTRIBUTION WIDTH 13.7 % (11.5-14.0); SEGMENTED NEUTROPHILS % (AUTO) 82.7 % (42-78); TOTAL CELLS COUNTED % (AUTO) 100 %; WHITE BLOOD COUNT 10.1 10^3/uL (4.0-10.5)
[2017-09-26 22:00] LABS: ALANINE AMINOTRANSFERASE 33 U/L (9-52); ALBUMIN 3.7 g/dL (3.5-5.0); ALKALINE PHOSPHATASE 69 U/L (38-126); ANION GAP 6 (5-19); ASPARTATE AMINO TRANSFERASE 34 U/L (14-36); BILIRUBIN,DIRECT 0.3 mg/dL (0.0-0.4); BILIRUBIN,TOTAL 0.3 mg/dL (0.2-1.3); BLOOD UREA NITROGEN 17 mg/dL (7-20); CALCIUM 9.2 mg/dL (8.4-10.2); CARBON DIOXIDE 30 mmol/L (22-30); CHLORIDE 103 mmol/L (98-107); GLUCOSE 135 mg/dL (75-110); LIPASE 88.6 U/L (23-300); POTASSIUM 4.2 mmol/L (3.6-5.0); TOTAL PROTEIN 6.3 g/dL (6.3-8.2)
[2017-09-26] MEDS ORDERED: ONDANSETRON ODT 4 MG TAB (6 TAB/ER DISP) PO PRN (22:29)
[2017-09-26 22:51] VITALS: BP 115/69
== END 2017-09-26 22:51 | disposition home or self-care (01) ==
LOC: ER 20:10
DX: R11.0 Nausea (principal); T40.2X5A Adverse effect of other opioids, initial encounter; R10.9 Unspecified abdominal pain; D64.9 Anemia, unspecified; J45.909 Unspecified asthma, uncomplicated; Z98.1 Arthrodesis status; Z90.3 Acquired absence of stomach [part of]; Z87.11 Personal history of peptic ulcer disease; Z85.048 Personal history of other malignant neoplasm of rectum, rectosigmoid junction, and anus; Z87.19 Personal history of other diseases of the digestive system; Z88.5 Allergy status to narcotic agent; Z88.8 Allergy status to other drugs, medicaments and biological substances; Z88.1 Allergy status to other antibiotic agents
CPT/HCPCS: 99283; 36415; 83690; 85025; 80053; A9270 ×2; S0119

== ENCOUNTER 2018-02-24 11:59 | Emergency (ER) | payer MEDICARE, MEDICAID ==
--- NOTE | 2018-02-24 12:15 | ER Document Report ---
ED Medical Screen (RME) - General Chief Complaint: Diarrhea Stated Complaint: WEAKNESS,DIARRHEA Time Seen by Provider: 02/24/18 12:14 Mode of Arrival: Ambulatory Information source: Patient TRAVEL OUTSIDE OF THE [place] IN LAST 30 DAYS: No - HPI Patient complains to provider of: weakness, confusion , diarrhea Onset: This morning - pt with c/o weakness, confusion and diarrhea since this am - Related Data Allergies/Adverse Reactions: propoxyphene napsylate [From Darvocet-N 100] Allergy (Intermediate, Verified 12:00) Tachycardia hydroxyzine HCl [From Vistaril] Allergy (Unknown, Verified 02/24/18 12:00) hydroxyzine pamoate [From Vistaril] Allergy (Unknown, Verified 02/24/18 12:00) levofloxacin [From Levaquin] Allergy (Unknown, Verified 02/24/18 12:00) oxycodone [Oxycodone] Allergy (Unknown, Verified 02/24/18 12:00) fluticasone propionate [From Advair Diskus] Adverse Reaction (Severe, Verified 02/24/18 12:00) AGRESSION salmeterol xinafoate [From Advair Diskus] Adverse Reaction (Severe, Verified 12:00) AGRESSION propoxyphene HCl [From Darvon] Adverse Reaction (Intermediate, Verified 12:00) Tachycardia celecoxib [From Celebrex] Adverse Reaction (Unknown, Verified 02/24/18 12:00) SHAKING meperidine HCl [From Demerol] Adverse Reaction (Unknown, Verified 02/24/18 12:00 ) Abnormal behavior oxycodone HCl [From Percocet] Adverse Reaction (Unknown, Verified 02/24/18 12:00 ) Tachycardia prednisone [Prednisone] Adverse Reaction (Unknown, Verified 02/24/18 12:00) CHILLS trazodone HCl [From Desyrel] Adverse Reaction (Unknown, Verified 02/24/18 12:00) amoxicillin [Amoxicillin] Adverse Reaction (Verified 02/24/18 12:00) STOMACH aspirin [Aspirin] Adverse Reaction (Verified 02/24/18 12:00) ULCER dexamethasone [From Decadron] Adverse Reaction (Verified 02/24/18 12:00) WEAKNESS dexamethasone sod phosphate [From Decadron] Adverse Reaction (Verified 02/24/18 12:00) WEAKNESS erythromycin base [From E-Mycin] Adverse Reaction (Verified 02/24/18 12:00) "STROKE LIKE SYMPTOMS pregabalin [From Lyrica] Adverse Reaction (Verified 02/24/18 12:00) "EFFECTS KIDNEYS" Past Medical History - Past Medical History Cardiac Medical History: Denies: Hx Coronary Artery Disease, Hx Heart Attack, Hx Hypertension Pulmonary Medical History: Reports: Hx Asthma - MILD Denies: Hx Bronchitis, Hx COPD, Hx Pneumonia Neurological Medical History: Denies: Hx Cerebrovascular Accident, Hx Seizures Renal/ Medical History: Denies: Hx Peritoneal Dialysis Malignancy Medical History: Reports: Hx Colorectal Cancer GI Medical History: Reports: Hx Diverticulitis, Hx Hiatal Hernia, Hx Ulcer, Hx Colonoscopy, Hx Endoscopy. 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 Denies: Hx Hysterectomy, Hx Mastectomy, Hx Open Heart Surgery - Immunizations Hx Diphtheria, Pertussis, Tetanus Vaccination: No Physical Exam - Vital signs Vitals: Temp Pulse Resp BP Pulse Ox 98.4 F 92 16 111/70 95 02/24/18 12:06 02/24/18 12:06 02/24/18 12:06 02/24/18 12:06 02/24/18 12:06 Course - Vital Signs Vital signs: Temp Pulse Resp BP Pulse Ox 98.4 F 92 16 111/70 95 02/24/18 12:06 02/24/18 12:06 02/24/18 12:06 02/24/18 12:06 02/24/18 12:06
[2018-02-24 12:49] LABS: HEMOGLOBIN 12.3 g/dL (12.0-15.5); TOTAL CELLS COUNTED % (AUTO) 100 %
[2018-02-24 12:56] LABS: ABSOLUTE LYMPHOCYTES (AUTO) 0.9 10^3/uL (0.5-4.7); ABSOLUTE MONOCYTES (AUTO) 0.3 10^3/uL (0.1-1.4); ABSOLUTE NEUT (AUTO) 3.6 10^3/uL (1.7-8.2); BASOPHILS % (AUTO) 0.5 % (0-2); HEMATOCRIT 37.4 % (36.0-47.0); MEAN CORPUSCULAR HEMOGLOBIN 29.7 pg (27.0-33.4); MEAN CORPUSCULAR VOLUME 90 fl (80-97); MONOCYTES % (AUTO) 6.8 % (3-13); PLATELET COUNT 264 10^3/uL (150-450); RED BLOOD COUNT 4.16 10^6/uL (3.72-5.28); RED CELL DISTRIBUTION WIDTH 17.3 % (11.5-14.0); SEGMENTED NEUTROPHILS % (AUTO) 73.7 % (42-78); WHITE BLOOD COUNT 4.9 10^3/uL (4.0-10.5)
[2018-02-24 13:00] LABS: ALANINE AMINOTRANSFERASE 27 U/L (9-52); ALBUMIN 4.3 g/dL (3.5-5.0); ALKALINE PHOSPHATASE 98 U/L (38-126); ANION GAP 12 (5-19); ASPARTATE AMINO TRANSFERASE 34 U/L (14-36); BILIRUBIN,DIRECT 0.1 mg/dL (0.0-0.4); BILIRUBIN,TOTAL 0.3 mg/dL (0.2-1.3); BLOOD UREA NITROGEN 16 mg/dL (7-20); CALCIUM 9.8 mg/dL (8.4-10.2); CARBON DIOXIDE 27 mmol/L (22-30); CHLORIDE 104 mmol/L (98-107); GLUCOSE 99 mg/dL (75-110); POTASSIUM 4.3 mmol/L (3.6-5.0); TOTAL PROTEIN 7.2 g/dL (6.3-8.2)
--- NOTE | 2018-02-24 14:20 | RADIOLOGY REPORT (SQ) ---
EXAM DESCRIPTION: CT HEAD WITHOUT COMPLETED DATE/TIME: 02/24/2018 2:06 pm REASON FOR STUDY: confusion COMPARISON: None. TECHNIQUE: Axial images acquired through the brain without intravenous contrast. Images reviewed wi th bone, brain and subdural windows. Additional sagittal and coronal reconstructions were generated. Images stored on PACS. All CT scanners at this facility use dose modulation, iterative reconstruction, and/or weight based d osing when appropriate to reduce radiation dose to as low as reasonably achievable (ALARA). [facility]: Dose Right [facility]: CareDose [facility]: Dose Right [facility]: Teradose 4D [facility]: ZEALER RADIATION DOSE: CT Rad equipment meets quality standard of care and radiation dose reduction techniq ues were employed. CTDIvol: 53.2 mGy. DLP: 1070 mGy-cm. mGy. LIMITATIONS: None. FINDINGS: VENTRICLES: Normal size and contour. CEREBRUM: No masses. No hemorrhage. No midline shift. No evidence for acute infarction. Normal gra y/white matter differentiation. No areas of low density in the white matter. CEREBELLUM: No masses. No hemorrhage. No alteration of density. No evidence for acute infarction. EXTRAAXIAL SPACES: No fluid collections. No masses. ORBITS AND GLOBE: No intra- or extraconal masses. Normal contour of globe without masses. CALVARIUM: No fracture. PARANASAL SINUSES: No fluid or mucosal thickening. SOFT TISSUES: No mass or hematoma. OTHER: No other significant finding. IMPRESSION: NORMAL BRAIN CT WITHOUT CONTRAST. EVIDENCE OF ACUTE STROKE: NO. COMMENT: Quality ID # [id number]: Final reports with documentation of one or more dose reduction techniques (e.g., Automated exposure control, adjustment of the mA and/or kV according to patient size, use of iterative reconstruction technique) TECHNICAL DOCUMENTATION: JOB ID: [id number] [employer]- All Rights Reserved Reading location - IP/workstation name: [email or web address]
[2018-02-24] MEDS ORDERED: RINGERS SOLUTION,LACTATED 1,000 ML IV ONE (14:28)
--- NOTE | 2018-02-24 14:51 | ER Document Report ---
ED General - General Chief Complaint: Diarrhea Stated Complaint: WEAKNESS,DIARRHEA Time Seen by Provider: 02/24/18 12:14 Mode of Arrival: Ambulatory Information source: Patient, [facility] Records Notes: Laboratory 02/24/18 02/24/18 02/24/18 12:18 12:18 17:15 WBC 4.9 RBC 4.16 Hgb 12.3 Hct 37.4 MCV 90 MCH 29.7 MCHC 33.0 RDW 17.3 H Plt Count 264 Seg Neutrophils % 73.7 Lymphocytes % 19.0 Monocytes % 6.8 Eosinophils % 0.0 Basophils % 0.5 Absolute Neutrophils 3.6 Absolute Lymphocytes 0.9 Absolute Monocytes 0.3 Absolute Eosinophils 0.0 Absolute Basophils 0.0 Sodium 143.0 Potassium 4.3 Chloride 104 Carbon Dioxide 27 Anion Gap 12 BUN 16 Creatinine 0.79 Est GFR ( Amer) > 60 Est GFR (Non-Af Amer) > 60 Glucose 99 Calcium 9.8 Total Bilirubin 0.3 Direct Bilirubin 0.1 Neonat Total Bilirubin Not Reportable Neonat Direct Bilirubin Not Reportable Neonat Indirect Bili Not Reportable AST 34 ALT 27 Alkaline Phosphatase 98 CK-MB (CK-2) 2.32 Troponin I < 0.012 Total Protein 7.[address] 02/24/18 12:14 IMPRESSION: NORMAL BRAIN CT WITHOUT CONTRAST. EVIDENCE OF ACUTE STROKE: NO. Chest X-Ray 02/24/18 14:28 IMPRESSION: NO ACUTE RADIOGRAPHIC FINDING IN THE CHEST. 72-year-old female presents with her grandson who is also being seen in the emergency department with complaint of a brief episode of voluminous diarrhea followed by generalized weakness and brief confusion that resolved spontaneously. Patient stated "I never thought I was going to stop having diarrhea". Patient states that she has been otherwise healthy. She denies any current headache, abdominal pain, blurred vision, weakness. Patient admits to sick contacts at home with family members with similar symptoms. She denies any recent travel, antibiotic use. TRAVEL OUTSIDE OF THE [place] IN LAST 30 DAYS: No - HPI Onset: Just prior to arrival Onset/Duration: Gradual, Gone Quality of pain: No pain Associated symptoms: Diarrhea, Weakness Exacerbated by: Denies Relieved by: Denies Similar symptoms previously: No Recently seen / treated by doctor: No - Related Data Allergies/Adverse Reactions: propoxyphene napsylate [From Darvocet-N 100] Allergy (Intermediate, Verified 12:00) Tachycardia hydroxyzine HCl [From Vistaril] Allergy (Unknown, Verified 02/24/18 12:00) hydroxyzine pamoate [From Vistaril] Allergy (Unknown, Verified 02/24/18 12:00) levofloxacin [From Levaquin] Allergy (Unknown, Verified 02/24/18 12:00) oxycodone [Oxycodone] Allergy (Unknown, Verified 02/24/18 12:00) fluticasone propionate [From Advair Diskus] Adverse Reaction (Severe, Verified 02/24/18 12:00) AGRESSION salmeterol xinafoate [From Advair Diskus] Adverse Reaction (Severe, Verified 12:00) AGRESSION propoxyphene HCl [From Darvon] Adverse Reaction (Intermediate, Verified 12:00) Tachycardia celecoxib [From Celebrex] Adverse Reaction (Unknown, Verified 02/24/18 12:00) SHAKING meperidine HCl [From Demerol] Adverse Reaction (Unknown, Verified 02/24/18 12:00 ) Abnormal behavior oxycodone HCl [From Percocet] Adverse Reaction (Unknown, Verified 02/24/18 12:00 ) Tachycardia prednisone [Prednisone] Adverse Reaction (Unknown, Verified 02/24/18 12:00) CHILLS trazodone HCl [From Desyrel] Adverse Reaction (Unknown, Verified 02/24/18 12:00) amoxicillin [Amoxicillin] Adverse Reaction (Verified 02/24/18 12:00) STOMACH aspirin [Aspirin] Adverse Reaction (Verified 02/24/18 12:00) ULCER dexamethasone [From Decadron] Adverse Reaction (Verified 02/24/18 12:00) WEAKNESS dexamethasone sod phosphate [From Decadron] Adverse Reaction (Verified 02/24/18 12:00) WEAKNESS erythromycin base [From E-Mycin] Adverse Reaction (Verified 02/24/18 12:00) "STROKE LIKE SYMPTOMS pregabalin [From Lyrica] Adverse Reaction (Verified 02/24/18 12:00) "EFFECTS KIDNEYS" Past Medical History - General Information source: Patient - Social History Smoking Status: Never Smoker Frequency of alcohol use: None Drug Abuse: None Lives with: Family Family History: Arthritis, CAD, CVA, DM, Hyperlipidemia, Hypertension, Malignancy, Thyroid Disfunction Patient has suicidal ideation: No Patient has homicidal ideation: No - Past Medical History Cardiac Medical History: Denies: Hx Coronary Artery Disease, Hx Heart Attack, Hx Hypertension Pulmonary Medical History: Reports: Hx Asthma - MILD Denies: Hx Bronchitis, Hx COPD, Hx Pneumonia Neurological Medical History: Denies: Hx Cerebrovascular Accident, Hx Seizures Renal/ Medical History: Denies: Hx Peritoneal Dialysis Malignancy Medical History: Reports: Hx Colorectal Cancer GI Medical History: Reports: Hx Diverticulitis, Hx Hiatal Hernia, Hx Ulcer, Hx Colonoscopy, Hx Endoscopy. 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 Denies: Hx Hysterectomy, Hx Mastectomy, Hx Open Heart Surgery - Immunizations Hx Diphtheria, Pertussis, Tetanus Vaccination: No Review of Systems - Review of Systems Notes: REVIEW OF SYSTEMS: CONSTITUTIONAL : Denies fever, chills, or sweats. Denies recent illness. Denies weight loss, recent hospitalizations. EENT: Denies visual changes, eye pain. Denies sore throat, oral lesions, difficulty swallowing. CARDIOVASCULAR: Denies chest pain. Denies palpitations. Denies lower extremity edema. RESPIRATORY: Denies cough. Denies shortness of breath, wheezing. GASTROINTESTINAL: Denies abdominal pain or distention. Denies nausea, vomiting. Denies blood in vomitus, stools, or per rectum. Denies black, tarry stools. Denies constipation. GENITOURINARY: Denies difficulty urinating, painful urination, frequency, blood in urine, or vaginal discharge. MUSCULOSKELETAL: Denies back or neck pain or stiffness. Denies joint pain or swelling. SKIN: Denies rash, lesions or sores. HEMATOLOGIC : Denies easy bruising or bleeding. LYMPHATIC: Denies swollen glands. NEUROLOGICAL: Denies loss of consciousness. Denies dizziness or lightheadedness. Denies headache. Denies weakness or paralysis. Denies problems difficulty with ambulation, slurred speech. Denies sensory loss, numbness, or tingling. Denies seizures. PSYCHIATRIC: Denies anxiety or stress. Denies depression, suicidal ideation, or homicidal ideation. Denies visual or auditory hallucinations. Physical Exam - Vital signs Vitals: Temp Pulse Resp BP Pulse Ox 98.4 F 92 16 111/70 95 02/24/18 12:06 02/24/18 12:06 02/24/18 12:06 02/24/18 12:06 02/24/18 12:06 - Notes Notes: PHYSICAL EXAMINATION: GENERAL: Well-appearing, well-nourished and in no acute distress. HEAD: Atraumatic, normocephalic. EYES: Pupils equal round and reactive to light, extraocular movements intact, conjunctiva are normal. ENT: Nares patent, oropharynx clear without exudates. Moist mucous membranes. NECK: Normal range of motion, supple without lymphadenopathy LUNGS: Breath sounds clear to auscultation bilaterally and equal. No wheezes rales or rhonchi. HEART: Regular rate and rhythm without murmurs ABDOMEN: Soft, nontender, nondistended abdomen. No guarding, no rebound. No masses appreciated. Female : deferred Musculoskeletal: Normal range of motion, no pitting or edema. No cyanosis. NEUROLOGICAL: Cranial nerves grossly intact. Normal speech, normal gait. Normal sensory, motor exams. NIH-0 PSYCH: Normal mood, normal affect. SKIN: Warm, Dry, normal turgor, no rashes or lesions noted. Course - Re-evaluation Re-evalutation: Laboratory 02/24/18 02/24/18 02/24/18 12:18 12:18 17:15 WBC 4.9 RBC 4.16 Hgb 12.3 Hct 37.4 MCV 90 MCH 29.7 MCHC 33.0 RDW 17.3 H Plt Count 264 Seg Neutrophils % 73.7 Lymphocytes % 19.0 Monocytes % 6.8 Eosinophils % 0.0 Basophils % 0.5 Absolute Neutrophils 3.6 Absolute Lymphocytes 0.9 Absolute Monocytes 0.3 Absolute Eosinophils 0.0 Absolute Basophils 0.0 Sodium 143.0 Potassium 4.3 Chloride 104 Carbon Dioxide 27 Anion Gap 12 BUN 16 Creatinine 0.79 Est GFR ( Amer) > 60 Est GFR (Non-Af Amer) > 60 Glucose 99 Calcium 9.8 Total Bilirubin 0.3 Direct Bilirubin 0.1 Neonat Total Bilirubin Not Reportable Neonat Direct Bilirubin Not Reportable Neonat Indirect Bili Not Reportable AST 34 ALT 27 Alkaline Phosphatase 98 CK-MB (CK-2) 2.32 Troponin I < 0.012 Total Protein 7.[address] 02/24/18 12:14 IMPRESSION: NORMAL BRAIN CT WITHOUT CONTRAST. EVIDENCE OF ACUTE STROKE: NO. Chest X-Ray 02/24/18 14:28 IMPRESSION: NO ACUTE RADIOGRAPHIC FINDING IN THE CHEST. 02/24/18 18:03 72-year-old female presents with complaint of generalized weakness, a brief episode of confusion and one large episode of diarrhea this morning that have now all resolved. Vital signs reviewed and within normal limits. Patient does not appear toxic or dehydrated. She is in no acute distress. Orthostatic vital signs are negative. CAT scan of the head showed no acute process. EKG was obtained and showed the patient to be in normal sinus rhythm at a rate of 76. No evidence of ischemia, ST elevation. Patient did receive 500 cc bolus of normal saline. She was ambulated and walked without difficulty. NIH was performed and 0. Patient has no focal neurologic deficits. CBC is without leukocytosis or anemia. CMP shows no significant electrolyte abnormalities. Cardiac enzymes within normal limits. It is possible that patient had a brief near syncopal episode after which she described as a large voluminous bowel movement that lasted over 10 minutes. Patient advised to rest, hydrate and return with any concerning symptoms. Patient was evaluated and treated as appropriate for the patient's presenting symptoms and complaint, with consideration of any critical or life threatening conditions that may be associated with their obtained history and exam as noted above. All results were discussed with patient and copies of all her lab work and imaging were performed today. Patient provided the opportunity to ask questions, and express concerns. Patient was educated on treatments based on their presumed diagnosis as noted above. At this time we will discharge the patient with return precautions and follow-up recommendations. Verbal discharge instructions given a the bedside. Medication warnings reviewed. Patient is in agreement with this plan and has verbalized understanding of return precautions. After careful consideration I feel that that patient can be safely discharged from the emergency department, they were advised to followup with a primary care physician in 2-3 days. Dictation on this chart was performed using voice recognition software and may result in unintended grammatical, spelling, syntax or errors. 02/24/18 18:05 02/24/18 22:17 02/24/18 22:19 - Vital Signs Vital signs: Temp Pulse Resp BP Pulse Ox 98.4 F 71 16 119/78 100 02/24/18 18:54 02/24/18 18:54 02/24/18 18:54 02/24/18 18:54 02/24/18 18:54 - Laboratory Result Diagrams: 02/24/18 12:18 02/24/18 12:18 Laboratory results interpreted by me: 02/24/18 12:18 RDW 17.3 H - Diagnostic Test Radiology reviewed: Image reviewed, Reports reviewed - EKG Interpretation by Me EKG shows normal: Sinus rhythm Rate: Normal Rhythm: NSR When compared to previous EKG there are: No significant change Discharge - Discharge Clinical Impression: Episode of generalized weakness, Transient confusion Diarrhea Qualifiers: Diarrhea type: unspecified type Qualified Code(s): R19.7 - Diarrhea, unspecified Condition: Good Disposition: HOME, SELF-CARE Instructions: Altered Mental Status ([facility]), Diarrhea, Nonspecific ([facility]), Dizziness ([facility]), Weakness ([facility]) Additional Instructions: Your symptoms are likely due to a viral infection. The only treatment at this time is supportive care including drinking plenty of fluids. Your symptoms will likely last for 7-10 days. Please return to the emergency department immediately if you become confused, have persistent vomiting, pass out, have severe headache, or have any other symptoms that are worrisome to you. Follow- up with your primary care doctor in the next several days. The CAT scan of your brain and your neurologic exam do not indicate stroke. Your chest x-ray and the remaining of your labs were within normal limits. He will be provided a copy of your labs and imaging to take to your primary care physician in the next 48 hours. Follow up with your [id number] hours for further care or return to the ED IMMEDIATELY if symptoms worsen or you have any concerns. If you cannot afford to follow up with your primary care physician a list of low cost clinics have been provided at the end of your discharge papers as well. Most prescribed medications have multiple side effects. The safest thing to do is when filling your prescription speak to your pharmacist regarding possible interactions with your normal home medications and over the counter medications such as Ibuprofen, Tylenol, Benadryl. If you experience any symptoms that cause you discomfort or concern you should discontinue the medication immediately and return to the emergency room or call your primary care physician. ED NIH Stroke Scale - NIH Stroke Scale *: 1. NIH scale should be completed with appropriate accompanying assessment tools. *: 2. The NIH should reflect what the patient is capable of doing and should not be coached by the clinician. 1a. Level of Consciousness: 0=Alert;keenly responsive -: 1=Drowsy -: 2=Obtunded -: 3=Coma/unresponsive or reflex to noxious stimuli. 1a. Responses: 0 1b. Orientation Questions: a. What month is it? -: b. How old are you? -: 0=Answers both questions correctly. -: 1=Answers one question correctly or patient is intubated or has orotracheal trauma. -: 2=Answers neither question correctly. 1b. Responses: 0 1c. Response to commands: a. Open and close eyes? -: b. Mixer Runner and release hand? -: Credit is given despite weakness. Demonstration of task is permitted. Substitute command if hands cannot be used. -: 0=Performs both tasks correctly -: 1=Performs one task correctly -: 2=Performs neither task correctly 1c. Responses: 0 2. Gaze: Establish eye contact and instruct patient to "Follow my finger" -: 0=Normal -: 1=Partial gaze palsy. Gaze is abnormal in one or both eyes, but where forced deviation or total gaze paresis is not present. -: 2=Forced deviation or total gaze paresis. 2. Responses: 0 3. Visual Hughes: Sees fingers in all four quadrants. -: 0=No visual loss. -: 1=Partial hemianopsia. -: 2=Complete hemianopsia. -: 3=Bilateral hemianopsia (including Cortical blindness) 3. Responses: 0 4. Facial Movement: Instruct patient to: -: a. Show me your teeth -: b. Raise your eyebrows -: c. Close your eyes -: d. Smile -: 0=Normal symmetrical movement -: 1=Minor paralysis (flattened nasolabial fold, asymmetry on smiling). -: 2=Partial paralysis (total or near total paralysis of lower face). -: 3=Complete paralysis of upper and lower face 4. Responses: 0 5. Motor functions (left arm): Alternate sides and extend each arm with palms down (90 degrees if sitting or 45 degrees for supine). -: 0=No drift;limb holds for full 10 seconds. -: 1=Drift; limb holds but drifts down before full 10 seconds, but does not hit bed. -: 2=Some effort against gravity; limb cannot get to or maintain position. -: 3=No effort against gravity; limb falls. -: 4=No movement. -: UN=Amputation, joint fusion, explain in comments. 5. Responses (left arm): 0 5. Motor Functions (right arm): Alternate sides and extend each arm with palms down (90 degrees if sitting or 45 degrees for supine). -: 0=No drift;limb holds for full 10 seconds. -: 1=Drift; limb holds but drifts down before full 10 seconds, but does not hit bed. -: 2=Some effort against gravity; limb cannot get to or maintain position. -: 3=No effort against gravity; limb falls. -: 4=No movement. -: UN=Amputation, joint fusion, explain in comments. 5. Responses (right arm): 0 6. Motor Functions (left leg): With patient lying supine, alternate sides and extend each leg (30 degrees always while supine). -: 0=No drift, leg holds position for full 5 seconds -: 1=Drift; leg falls before full 5 seconds but does not hit bed. -: 2=Some effort against gravity, leg falls to bed but some effort against gravity. -: 3=No effort against gravity, leg falls to bed immediately. -: 4=No movement. -: UN=Amputation, joint fusion; explain in comments. 6. Responses (left leg): 0 6. Motor Functions (right leg): With patient lying supine, alternate sides and extend each leg (30 degrees always while supine). -: 0=No drift, leg holds position for full 5 seconds -: 1=Drift; leg falls before full 5 seconds but does not hit bed. -: 2=Some effort against gravity, leg falls to bed but some effort against gravity. -: 3=No effort against gravity, leg falls to bed immediately. -: 4=No movement. -: UN=Amputation, joint fusion; explain in comments. 6. Responses (right leg): 0 7. Limb Ataxia: With eyes open instruct patient to: -: a. "Touch your finger to your nose". -: b. "Touch your heel to your dick" -: 0=Absent -: 1=Present in one limb. -: 2=Present in two limbs. -: UN=Amputation or joint fusion; explain in comments. 7. Responses: 0 8. Sensory: Test sensation using pinprick or noxious stimuli. Test as many body parts as possible. -: 0=Normal;no sensory loss -: 1=Mile to moderate sensory loss (patient feels pin prick but is less sharp on affected side). -: 2=Severe or total sensory loss. 8. Responses: 0 9. Best Language: Instruct patient to: -: a. "Describe what you see in this picture." -: b. "Name the items in this picture." -: c. "Read these sentences." -: 0=No aphasia, normal -: 1=Mild to moderate aphasia. -: 2=Severe aphasia -: 3=Mute, global aphasia, no usable speech or auditory comprehension. 9. Responses: 0 10. Articulation, Dysarthia: Instruct patient to: -: "Read these words" or "Repeat these words" -: 0=Normal -: 1=Mild to moderate; patient may slur some words but can be understood without difficulty. -: 2=Severe; patients speech so slurred as to be unintelligible in the absence of dysphasia. -: UN=Intubated or other physical barrier, explain in comments. 10. Responses: 0 11. Extinction or inattention: 0=No abnormality -: 1= Visual, tactile, auditory, spatial, or personal inattention or extinction to bilateral simulation in one or the sensory modalities. -: 2=Profound viki-inattention or viki-inattention to more than one modality; does not recognize own hand. 11. Responses: 0 Total Score: 0
--- NOTE | 2018-02-24 15:44 | RADIOLOGY REPORT (SQ) ---
EXAM DESCRIPTION: CHEST 2 VIEWS COMPLETED DATE/TIME: 02/24/2018 3:15 pm REASON FOR STUDY: weakness COMPARISON: 08/22/2016 EXAM PARAMETERS: NUMBER OF VIEWS: two views TECHNIQUE: Digital Frontal and Lateral radiographic views of the chest acquired. RADIATION DOSE: NA LIMITATIONS: none FINDINGS: LUNGS AND PLEURA: No opacities, masses or pneumothorax. No pleural effusion. MEDIASTINUM AND HILAR STRUCTURES: No masses or contour abnormalities. HEART AND VASCULAR STRUCTURES: Heart normal size. No evidence for failure. BONES: No acute findings. HARDWARE: None in the chest. OTHER: No other significant finding. IMPRESSION: NO ACUTE RADIOGRAPHIC FINDING IN THE CHEST. TECHNICAL DOCUMENTATION: JOB ID: [id number] [employer]- All Rights Reserved Reading location - IP/workstation name: [email or web address]
--- NOTE | 2018-02-24 17:30 | EKG REPORT ---
SEVERITY:- BORDERLINE ECG - SINUS RHYTHM BORDERLINE R WAVE PROGRESSION, ANTERIOR LEADS : Confirmed by: Bouchra Joiner 24-Feb-2018 17:30:23
[2018-02-24 17:46] LABS: CREATINE KINASE MB 2.32 ng/mL (<4.55)
[2018-02-24 17:50] LABS: TROPONIN I < 0.012 ng/mL
[2018-02-24 18:55] VITALS: BP 119/78
== END 2018-02-24 18:56 | disposition home or self-care (01) ==
LOC: ER 11:59
DX: R19.7 Diarrhea, unspecified (principal); R53.1 Weakness; R41.0 Disorientation, unspecified; J45.909 Unspecified asthma, uncomplicated; Z85.048 Personal history of other malignant neoplasm of rectum, rectosigmoid junction, and anus; Z87.19 Personal history of other diseases of the digestive system; Z87.11 Personal history of peptic ulcer disease; Z90.3 Acquired absence of stomach [part of]; Z88.5 Allergy status to narcotic agent; Z88.8 Allergy status to other drugs, medicaments and biological substances; Z88.1 Allergy status to other antibiotic agents
CPT/HCPCS: 93005; 99285; 36415; 82553; 85025; 80053; 84484; 71046; 70450; 93010; J7120

== ENCOUNTER 2018-07-09 10:02 | Emergency (ER) | payer MEDICARE, MEDICAID ==
[2018-07-09 10:09] VITALS: BP 128/74
--- NOTE | 2018-07-09 10:42 | ER Document Report ---
ED General - General Chief Complaint: Allergic Reaction Stated Complaint: POSSIBLE ALLERGIC REACTION Time Seen by Provider: 07/09/18 10:28 TRAVEL OUTSIDE OF THE [place] IN LAST 30 DAYS: No - HPI Notes: Patient is a 72-year-old female that presents to the emergency department for chief complaint of rash. Patient reports rash on her arms and legs for the last 3 days. She saw her PCP yesterday and was told to use Benadryl cream and Benadryl tablets. She states the itching has continued despite using those medications. She denies any fever or chills. She denies any pain around the rash. She states she is allergic to a lot of medications and is not sure what caused her allergic reaction today. She denies any injury to the area. Past Medical History: Reviewed in chart Past Surgical History: Cervical spine surgery, bone stimulator Social History: Denies drugs alcohol and tobacco Family History: Reviewed and noncontributory for presenting illness Allergies: Reviewed, see documented allergy list. REVIEW OF SYSTEMS: CONSTITUTIONAL : No fever No chills No diaphoresis No recent illness EENT: No vision changes No congestion No sore throat CARDIOVASCULAR: No chest pain No palpitations RESPIRATORY: No shortness of breath No cough No difficulty breathing GASTROINTESTINAL: No abdominal pain No nausea No vomiting No diarrhea GENITOURINARY: No dysuria No hematuria No difficulty urinating MUSCULOSKELETAL: No back pain No leg pain No arm pain SKIN: rashes No lesions LYMPHATIC: No swollen, enlarged glands. NEUROLOGICAL: No lightheadedness No headache No weakness No paresthesias PSYCHIATRIC: No anxiety No depression PHYSICAL EXAMINATION: Vital signs reviewed, nursing noted reviewed. GENERAL: Well-appearing, well-nourished and in no acute distress. HEAD: Atraumatic, normocephalic. EYES: Eyes appear normal, extraocular movements intact, sclera anicteric, conjunctiva are normal. ENT: nares patent, oropharynx clear without exudates. Moist mucous membranes. NECK: Normal range of motion, supple without lymphadenopathy LUNGS: Breath sounds clear to auscultation bilaterally and equal. No wheezes rales or rhonchi. HEART: Regular rate and rhythm without murmurs ABDOMEN: Soft, nontender, normoactive bowel sounds. No rebound, guarding, or rigidity. No masses appreciated. EXTREMITIES: Nontender, good range of motion, no pitting or edema. NEUROLOGICAL: No focal neurological deficits. Moves all extremities spontaneously Motor and sensory grossly intact on exam. PSYCH: Normal mood, normal affect. SKIN: Warm, Dry, normal turgor, urticarial blanchable erythematous rash to right lateral forearm, left lateral forearm, and left calf with central macule consistent with insect bite, no areas of fluctuance or Calor - Related Data Allergies/Adverse Reactions: propoxyphene napsylate [From Darvocet-N 100] Allergy (Intermediate, Verified 07/09/18 10:06) Tachycardia hydroxyzine HCl [From Vistaril] Allergy (Unknown, Verified 07/09/18 10:06) hydroxyzine pamoate [From Vistaril] Allergy (Unknown, Verified 07/09/18 10:06) levofloxacin [From Levaquin] Allergy (Unknown, Verified 07/09/18 10:06) oxycodone [Oxycodone] Allergy (Unknown, Verified 07/09/18 10:06) fluticasone propionate [From Advair Diskus] Adverse Reaction (Severe, Verified 07/09/18 10:06) AGRESSION salmeterol xinafoate [From Advair Diskus] Adverse Reaction (Severe, Verified 07/09/18 10:06) AGRESSION propoxyphene HCl [From Darvon] Adverse Reaction (Intermediate, Verified 07/09/18 10:06) Tachycardia celecoxib [From Celebrex] Adverse Reaction (Unknown, Verified 07/09/18 10:06) SHAKING meperidine HCl [From Demerol] Adverse Reaction (Unknown, Verified 07/09/18 10:06) Abnormal behavior oxycodone HCl [From Percocet] Adverse Reaction (Unknown, Verified 07/09/18 10:06) Tachycardia prednisone [Prednisone] Adverse Reaction (Unknown, Verified 07/09/18 10:06) CHILLS trazodone HCl [From Desyrel] Adverse Reaction (Unknown, Verified 07/09/18 10:06) amoxicillin [Amoxicillin] Adverse Reaction (Verified 07/09/18 10:06) STOMACH aspirin [Aspirin] Adverse Reaction (Verified 07/09/18 10:06) ULCER dexamethasone [From Decadron] Adverse Reaction (Verified 07/09/18 10:06) WEAKNESS dexamethasone sod phosphate [From Decadron] Adverse Reaction (Verified 07/09/18 10:06) WEAKNESS erythromycin base [From E-Mycin] Adverse Reaction (Verified 07/09/18 10:06) "STROKE LIKE SYMPTOMS pregabalin [From Lyrica] Adverse Reaction (Verified 07/09/18 10:06) "EFFECTS KIDNEYS" Past Medical History - Social History Smoking Status: Never Smoker Family History: Arthritis, CAD, CVA, DM, Hyperlipidemia, Hypertension, Malignan cy, Thyroid Disfunction - Past Medical History Cardiac Medical History: Denies: Hx Coronary Artery Disease, Hx Heart Attack, Hx Hypertension Pulmonary Medical History: Reports: Hx Asthma - MILD Denies: Hx Bronchitis, Hx COPD, Hx Pneumonia Neurological Medical History: Denies: Hx Cerebrovascular Accident, Hx Seizures Renal/ Medical History: Denies: Hx Peritoneal Dialysis Malignancy Medical History: Reports: Hx Colorectal Cancer GI Medical History: Reports: Hx Diverticulitis, Hx Hiatal Hernia, Hx Ulcer, Hx Colonoscopy, Hx Endoscopy. 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 Denies: Hx Hysterectomy, Hx Mastectomy, Hx Open Heart Surgery - Immunizations Hx Diphtheria, Pertussis, Tetanus Vaccination: No Physical Exam - Vital signs Vitals: Temp Pulse Resp BP Pulse Ox 98.4 F 77 16 128/74 H 98 07/09/18 10:08 07/09/18 10:08 07/09/18 10:08 07/09/18 10:08 07/09/18 10:08 Course - Re-evaluation Re-evalutation: 07/09/18 10:39 Vitals reviewed. Nursing notes reviewed. Patient has an urticarial rash consistent with allergic reaction with what appears to be insect bite centrally. Patient has an allergy to steroids therefore I am unable to prescribe them. She is not sure if she will have an issue with topical steroids and does not know what her reaction to steroids has been in the past. I advised her to continue using the Benadryl as needed for itching. She was given an ice pack to assist with the itching. Patient was told to try hydrocortisone 1% cream on a small area to see if she has a reaction and if not to apply it to the rest of her itching areas. There does not appear to be any superimposed cellulitis. I did elementary school counselor her on avoiding itching the area and signs of infection. She has an appointment with her PCP for reevaluation in 3 days which she will keep. - Vital Signs Vital signs: Temp Pulse Resp BP Pulse Ox 98.4 F 77 16 128/74 H 98 07/09/18 10:08 07/09/18 10:08 07/09/18 10:08 07/09/18 10:08 07/09/18 10:08 Discharge - Discharge Clinical Impression: Allergic reaction Qualifiers: Encounter type: initial encounter Qualified Code(s): T78.40XA - Allergy, unspecified, initial encounter Condition: Stable Disposition: HOME, SELF-CARE Instructions: Acute Allergic Reaction ([facility]) Additional Instructions: Please return to the emergency department if you have any worsening, or concern of your symptoms. Please return to the emergency department if you develop chest pain, difficulty breathing, severe abdominal pain, or ongoing vomiting. Please follow-up with your primary care physician in 2-3 days and any other recommended physicians. If prescribed, take all medications as directed. If you have any questions or concerns do not hesitate to return the emergency department for evaluation.
== END 2018-07-09 11:00 | disposition home or self-care (01) ==
LOC: ER 10:02
DX: T78.40XA Allergy, unspecified, initial encounter (principal); L50.9 Urticaria, unspecified; X58.XXXA Exposure to other specified factors, initial encounter; Z88.6 Allergy status to analgesic agent; Z88.0 Allergy status to penicillin; Z88.3 Allergy status to other anti-infective agents
CPT/HCPCS: 99282

== ENCOUNTER 2018-07-20 21:45 | Emergency (ER) | payer MEDICARE, MEDICAID ==
[2018-07-20 23:05] LABS: ABSOLUTE LYMPHOCYTES (AUTO) 1.6 10^3/uL (0.5-4.7); ABSOLUTE MONOCYTES (AUTO) 0.5 10^3/uL (0.1-1.4); ABSOLUTE NEUT (AUTO) 1.4 10^3/uL (1.7-8.2); BASOPHILS % (AUTO) 0.5 % (0-2); EOSINOPHILS % (AUTO) 0.6 % (0-6); HEMATOCRIT 37.3 % (36.0-47.0); HEMOGLOBIN 12.5 g/dL (12.0-15.5); LYMPHOCYTES % (AUTO) 45.5 % (13-45); MEAN CORPUSCULAR HEMOGLOBIN 31.9 pg (27.0-33.4); MEAN CORPUSCULAR HGB CONC 33.5 g/dL (32.0-36.0); MEAN CORPUSCULAR VOLUME 95 fl (80-97); MONOCYTES % (AUTO) 13.7 % (3-13); PLATELET COUNT 248 10^3/uL (150-450); RED BLOOD COUNT 3.91 10^6/uL (3.72-5.28); RED CELL DISTRIBUTION WIDTH 15.6 % (11.5-14.0); SEGMENTED NEUTROPHILS % (AUTO) 39.7 % (42-78); TOTAL CELLS COUNTED % (AUTO) 100 %; WHITE BLOOD COUNT 3.6 10^3/uL (4.0-10.5)
[2018-07-20 23:16] LABS: ALANINE AMINOTRANSFERASE 30 U/L (9-52); ALBUMIN 3.9 g/dL (3.5-5.0); ALKALINE PHOSPHATASE 75 U/L (38-126); ASPARTATE AMINO TRANSFERASE 27 U/L (14-36); BILIRUBIN,DIRECT 0.1 mg/dL (0.0-0.4); BILIRUBIN,TOTAL 0.2 mg/dL (0.2-1.3); BLOOD UREA NITROGEN 18 mg/dL (7-20); CALCIUM 9.9 mg/dL (8.4-10.2); CREATINE KINASE 225 U/L (30-135); GLUCOSE 92 mg/dL (75-110); POTASSIUM 4.5 mmol/L (3.6-5.0); TOTAL PROTEIN 6.8 g/dL (6.3-8.2)
[2018-07-20 23:21] LABS: ANION GAP 4 (5-19); CARBON DIOXIDE 32 mmol/L (22-30); CHLORIDE 104 mmol/L (98-107); SODIUM 139.8 mmol/L (137-145)
[2018-07-20 23:26] LABS: CREATINE KINASE MB 1.43 ng/mL (<4.55); TROPONIN I 0.018 ng/mL
--- NOTE | 2018-07-21 02:39 | ER Document Report ---
ED General - General Chief Complaint: High Blood Pressure Stated Complaint: BLOOD PRESSURE PROB;EMS,CHEST DISCOMFORT Time Seen by Provider: 07/21/18 00:51 Primary Care Provider: SHAYNE IRVIN PA-C [Primary Care Provider] - Follow up as needed Notes: Patient is a 72-year-old female who presents to the emergency department with multiple complaints. The patient's first concern is that she is concerned about her blood pressure fluctuating so much. The patient states that she saw checked her blood pressure 7 times today. She hands me her blood pressure log which begins from blood pressures as early as 4:41 AM yesterday morning and it continued intermittently throughout the day today including 3 blood pressure c hecks within the last 6 hours. These blood pressures are all within normal limits but the patient is very concerned that they have fluctuated from 112 systolic to 147 systolic. She also states that she has been having some swelling of her right hand ever since she had an allergic reaction to a "bone stimulator" for which she was seen several days ago. She also states that sometimes her chest feels "funny" but denies this currently. Nothing seems to improve or worsen her symptoms. She has not seen her general doctor regarding her concerns today. Taking all medications as prescribed. Denies focal weakness, numbness or confusion. TRAVEL OUTSIDE OF THE [place] IN LAST 30 DAYS: No - HPI Onset: Last week Onset/Duration: Intermittent Quality of pain: No pain Severity: Moderate Pain Level: Denies Associated symptoms: None - States she feels funny Exacerbated by: Denies Relieved by: Denies Similar symptoms previously: Yes Recently seen / treated by doctor: No - Related Data Allergies/Adverse Reactions: propoxyphene napsylate [From Darvocet-N 100] Allergy (Intermediate, Verified 07/20/18 21:48) Tachycardia hydroxyzine HCl [From Vistaril] Allergy (Unknown, Verified 07/20/18 21:48) hydroxyzine pamoate [From Vistaril] Allergy (Unknown, Verified 07/20/18 21:48) levofloxacin [From Levaquin] Allergy (Unknown, Verified 07/20/18 21:48) oxycodone [Oxycodone] Allergy (Unknown, Verified 07/20/18 21:48) fluticasone propionate [From Advair Diskus] Adverse Reaction (Severe, Verified 07/20/18 21:48) AGRESSION salmeterol xinafoate [From Advair Diskus] Adverse Reaction (Severe, Verified 07/20/18 21:48) AGRESSION propoxyphene HCl [From Darvon] Adverse Reaction (Intermediate, Verified 07/20/18 21:48) Tachycardia celecoxib [From Celebrex] Adverse Reaction (Unknown, Verified 07/20/18 21:48) SHAKING meperidine HCl [From Demerol] Adverse Reaction (Unknown, Verified 07/20/18 21:48) Abnormal behavior oxycodone HCl [From Percocet] Adverse Reaction (Unknown, Verified 07/20/18 21:48) Tachycardia prednisone [Prednisone] Adverse Reaction (Unknown, Verified 07/20/18 21:48) CHILLS trazodone HCl [From Desyrel] Adverse Reaction (Unknown, Verified 07/20/18 21:48) amoxicillin [Amoxicillin] Adverse Reaction (Verified 07/20/18 21:48) STOMACH aspirin [Aspirin] Adverse Reaction (Verified 07/20/18 21:48) ULCER dexamethasone [From Decadron] Adverse Reaction (Verified 07/20/18 21:48) WEAKNESS dexamethasone sod phosphate [From Decadron] Adverse Reaction (Verified 07/20/18 21:48) WEAKNESS erythromycin base [From E-Mycin] Adverse Reaction (Verified 07/20/18 21:48) "STROKE LIKE SYMPTOMS pregabalin [From Lyrica] Adverse Reaction (Verified 07/20/18 21:48) "EFFECTS KIDNEYS" Past Medical History - General Information source: Patient - Social History Smoking Status: Never Smoker Frequency of alcohol use: None Drug Abuse: None Lives with: Family Family History: Arthritis, CAD, CVA, DM, Hyperlipidemia, Hypertension, Malignancy, Thyroid Disfunction - Past Medical History Cardiac Medical History: Denies: Hx Coronary Artery Disease, Hx Heart Attack, Hx Hypertension Pulmonary Medical History: Reports: Hx Asthma - MILD Denies: Hx Bronchitis, Hx COPD, Hx Pneumonia Neurological Medical History: Denies: Hx Cerebrovascular Accident, Hx Seizures Renal/ Medical History: Denies: Hx Peritoneal Dialysis Malignancy Medical History: Reports: Hx Colorectal Cancer GI Medical History: Reports: Hx Diverticulitis, Hx Hiatal Hernia, Hx Ulcer, Hx Colonoscopy, Hx Endoscopy. 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 Denies: Hx Hysterectomy, Hx Mastectomy, Hx Open Heart Surgery - Immunizations Hx Diphtheria, Pertussis, Tetanus Vaccination: No Review of Systems - Review of Systems Notes: Constitutional: Negative for fever. HENT: Negative for sore throat. Eyes: Negative for visual changes. Cardiovascular: States "my chest feels funny" Respiratory: Negative for shortness of breath. Gastrointestinal: Negative for abdominal pain, vomiting or diarrhea. Genitourinary: Negative for dysuria. Musculoskeletal: Negative for back pain. Reports right hand swelling. Skin: Negative for rash. Neurological: Negative for headaches, weakness or numbness. 10 point ROS negative except as marked above and in HPI. Physical Exam - Vital signs Vitals: Resp BP Pulse Ox 17 159/98 H 98 07/21/18 01:01 07/21/18 01:01 07/21/18 01:01 Interpretation: Hypertensive Notes: PHYSICAL EXAMINATION: GENERAL: Well-appearing, well-nourished and in no acute distress. HEAD: Atraumatic, normocephalic. EYES: Pupils equal round and reactive to light, extraocular movements intact, sclera anicteric, conjunctiva are normal. ENT: nares patent, oropharynx clear without exudates. Moist mucous membranes. NECK: Normal range of motion, supple without lymphadenopathy LUNGS: Breath sounds clear to auscultation bilaterally and equal. No wheezes rales or rhonchi. HEART: Regular rate and rhythm without murmurs ABDOMEN: Soft, nontender, normoactive bowel sounds. No guarding, no rebound. No masses appreciated. EXTREMITIES: Normal range of motion, no pitting or edema. No cyanosis. NEUROLOGICAL: Face symmetric. Tongue protrudes midline. Extraocular motions intact. Pupils are 2 mm and equally reactive. Normal speech, normal gait. 5 out of 5 strength in both the distal and proximal upper and lower extremities bilaterally. Sensation is grossly intact throughout. Finger to nose testing normal. Pronator drift normal. PSYCH: Highly anxious SKIN: Warm, Dry, normal turgor, no rashes or lesions noted. Course - Re-evaluation Re-evalutation: 07/21/18 02:40 Patient presents with multiple vague complaints that did not appear to be c oncerning for any acute life-threatening pathology. Vitals are within normal limits at triage and at time of discharge. Physical examination is unremarkable. Patient has tolerated oral intake without difficulty. Patient was not noted to be in distress at any point during their ER visit. At this time, based on the reassuring evaluation, I do not suspect an acute WA, pulmonary embolus, aortic dissection, acute intra-abdominal pathology, stroke, or sepsis. Will discharge with return precautions and follow-up recommendations. Verbal discharge instructions given a the bedside and opportunity for questions given. Medication warnings reviewed. Patient is in agreement with this plan and has verbalized understanding of return precautions and the need for primary care follow-up in the next 24-72 hours. - Vital Signs Vital signs: Temp Pulse Resp BP Pulse Ox 97.7 F 11 L 127/72 H 97 07/21/18 04:01 07/21/18 04:01 07/21/18 04:01 07/21/18 04:01 - Laboratory Result Diagrams: 07/20/18 22:41 07/20/18 22:41 Laboratory results interpreted by me: 07/20/18 07/20/18 22:41 22:41 WBC 3.6 L RDW 15.6 H Seg Neutrophils % 39.7 L Lymphocytes % 45.5 H Monocytes % 13.7 H Absolute Neutrophils 1.4 L Carbon Dioxide 32 H Anion Gap 4 L Creatine Kinase 225 H - EKG Interpretation by Me Additional EKG results interpreted by me: 07/21/18 02:40 Sinus rhythm, rate 70. No ST elevations or depressions. QTC is 385 Discharge - Discharge Clinical Impression: Blood pressure instability, Chest discomfort Condition: Good Disposition: HOME, SELF-CARE Additional Instructions: Please return to the emergency room immediately if you experience any concerning symptoms including high fevers, severe headache, chest pain, difficulty breathing, abdominal pain, slurred speech, numbness or weakness in your arms or legs, or any other symptom that concerns you. Referrals: SHAYNE IRVIN PA-C [Primary Care Provider] - Follow up as needed
[2018-07-21 06:28] VITALS: BP 136/83
--- NOTE | 2018-07-21 23:42 | EKG REPORT ---
SEVERITY:- NORMAL ECG - SINUS RHYTHM : Confirmed by: Bouchra Joiner 21-Jul-2018 23:41:45
== END 2018-07-21 04:14 | disposition home or self-care (01) ==
LOC: ER 21:45
DX: R09.89 Other specified symptoms and signs involving the circulatory and respiratory systems (principal); M79.89 Other specified soft tissue disorders; J45.909 Unspecified asthma, uncomplicated; Z88.6 Allergy status to analgesic agent; Z88.8 Allergy status to other drugs, medicaments and biological substances; Z88.1 Allergy status to other antibiotic agents; Z82.49 Family history of ischemic heart disease and other diseases of the circulatory system; Z85.048 Personal history of other malignant neoplasm of rectum, rectosigmoid junction, and anus
CPT/HCPCS: 36415; 80053; 82550; 82553; 84484; 85025; 93005; 93010; 99283